=== PATIENT | male | born 1960 | race Caucasian/White ===

== ENCOUNTER 2019-02-09 12:57 | Emergency (ER) | payer BC, OTHER ==
[~2019-02-09] VITALS: Ht 72 cm; Wt 75.0 kg
[2019-02-09] MEDS ORDERED: LIDOCAINE UROJET 2% GEL 10 ML PKG TOP ONE (13:45)
[2019-02-09 14:36] LABS: BILIRUBIN,URINE NEGATIVE (NEGATIVE); CLARITY,URINE CLEAR; COLOR,URINE YELLOW; GLUCOSE, URINE (UA) NEGATIVE (NEGATIVE); KETONES,URINE NEGATIVE (NEGATIVE); LEUKOCYTE ESTERASE ,URINE 3+ (NEGATIVE); NITRITE,URINE POSITIVE (NEGATIVE); PH,URINE 7 (5-9); PROTEIN,URINE NEGATIVE (NEGATIVE); UROBILINOGEN,URINE NORMAL (NORMAL)
[2019-02-09 14:45] LABS: BACTERIA,URINE LARGE /HPF; WBC,URINE 50-100 /HPF
[2019-02-09] MEDS ORDERED: cefTRIAXone 1,000 MG/2.86 ml vial (IM ONLY) IM ONE (16:00)
[2019-02-09] MEDS ORDERED: LIDOCAINE 1% INJ 20 ML 20 ML VIAL INJ ONE (16:00)
[2019-02-09] MEDS ORDERED: PHEN-640 PO (16:04)
[2019-02-09] MEDS ORDERED: CIPR500T4 PO (16:04)
[2019-02-09] MEDS ORDERED: TAMS0.4C98 PO (16:04)
--- NOTE | 2019-02-09 16:05 | ED GU-Male ---
General Chief Complaint: Male Reproductive Stated Complaint: GROIN PAIN Nursing Triage Note: Pt amb to triage w/o difficulty with c/o groin pain. Reports discomfort began approx [id number] ago in his penis, and has gradually spread to his testicles and bilat lower abd. Pt described pain as sharp. Denies fever or chills. Source: patient Exam Limitations: no limitations History of Present Illness Date Seen by Provider: Feb 09, 2019 Time Seen by Provider: 13:35 Initial Comments This 4-year-old man presents to the emergency room with complaints of urinary hesitance, generalized discomfort in the pelvic region including the penis and scrotum, poor urine flow, and discomfort with attempts to urinate. This has been going on for about a month. He has not seen his doctor yet. He denies any known problems with his prostate. He denies any hematuria. He feels like he is retaining urine. He is afebrile. Dr. Maya on he is his primary care provi shabbir. He has a pending appointment with Dr. Jett. Allergies and Home Medications Allergies Coded Allergies: No Known Drug Allergies (Unverified , 02/09/19) Home Medications Ciprofloxacin HCl 500 Mg Tablet, 500 MG PO BID Prescribed by: KENNA HALL on 02/09/19 1604 Phenazopyridine HCl 200 Mg Tablet, 1 TAB PO TID PRN for PAIN-BREAKTHROUGH Prescribed by: KENNA HALL on 02/09/19 1604 Tamsulosin HCl 0.4 Mg Cap, 0.4 MG PO DAILY Prescribed by: KENNA HALL on 02/09/19 1604 Patient Home Medication List Home Medication List Reviewed: Yes Review of Systems Review of Systems Constitutional: no symptoms reported EENTM: no symptoms reported Respiratory: no symptoms reported Cardiovascular: no symptoms reported Gastrointestinal: no symptoms reported Genitourinary: see HPI Musculoskeletal: no symptoms reported Skin: no symptoms reported Psychiatric/Neurological: No Symptoms Reported Endocrine: No Symptoms Reported Hematologic/Lymphatic: No Symptoms Reported Past Xfrgdcu-Bfjswj-Wuoenx Hx Patient Social History Alcohol Use: Occasionally Uses Alcohol Beverage of Choice: Beer Recreational Drug Use: No Smoking Status: Current Everyday Smoker Type Used: Cigarettes Recent Foreign Travel: No Contact w/Someone Who Travel: No Recent Infectious Disease Expo: No Recent Hopitalizations: No Physical Abuse: No Sexual Abuse: No Mistreated: No Fear: No Immunizations Up To Date Tetanus Booster (TDap): Unknown Seasonal Allergies Seasonal Allergies: No Past Medical History Surgeries: Yes Abdominal (Hernia, colonoscopy), Appendectomy, Orthopedic Respiratory: No Cardiac: No Neurological: No Genitourinary: No Gastrointestinal: No Musculoskeletal: Yes Fractures Endocrine: No HEENT: No Cancer: No Psychosocial: No Integumentary: No Physical Exam Vital Signs Vital Signs - First Documented 02/09/19 13:12 Temp 37.3 Pulse 69 Resp 18 B/P (MAP) 202/113 (142) Pulse Ox 99 O2 Delivery Room Air Capillary Refill : Less Than 3 Seconds Height, Weight, BMI Height: '" Weight: lbs. oz. kg; 144.00 BMI Method: General Appearance: WD/WN, no apparent distress HEENT: PERRL/EOMI, normal ENT inspection Neck: normal inspection Cardiovascular: regular rate, rhythm, no edema, no murmur Respiratory: lungs clear, normal breath sounds, no respiratory distress, no accessory muscle use Gastrointestinal: normal bowel sounds, soft, distended (Fullness in the supr apubic region), tenderness (Suprapubic region) Male: normal genitalia, testicular tenderness (Minimal), other (Ring piercings of the posterior scrotum) Extremities: normal inspection, no pedal edema Neurologic/Psychiatric: sales operations associate II-XII nml as tested, no motor/sensory deficits, alert, normal mood/affect, oriented x 3 Skin: normal color, warm/dry Progress/Results/Core Measures Suspected Sepsis Recent Fever Within 48 Hours: No Infection Criteria Present: Suspected New Infection New/Unexplained Altered Menta: No Sepsis Screen: No Definite Risk SIRS Temperature: Pulse: 69 Respiratory Rate: 18 Blood Pressure 202 /113 Mean: 142 Results/Orders Lab Results Laboratory Tests Test 02/09/19 14:32 Range/Units Urine Color YELLOW Urine Clarity CLEAR Urine pH 7 5-9 Urine Specific [place] 1.005 L 1.016-1.022 Urine Protein NEGATIVE NEGATIVE Urine Glucose (UA) NEGATIVE NEGATIVE Urine Ketones NEGATIVE NEGATIVE Urine Nitrite POSITIVE H NEGATIVE Urine Bilirubin NEGATIVE NEGATIVE Urine Urobilinogen NORMAL NORMAL MG/DL Urine Leukocyte Esterase 3+ H NEGATIVE Urine RBC (Auto) NEGATIVE NEGATIVE Urine RBC NONE /HPF Urine WBC 50-100 H /HPF Urine Crystals NONE /LPF Urine Bacteria LARGE H /HPF Urine Casts NONE /LPF Urine Mucus NEGATIVE /LPF Urine Culture Indicated YES Micro Results Microbiology 02/09/19 Urine Culture - Preliminary, Resulted Klebsiella pneumoniae My Orders Orders - KENNA MIR MD Ua Culture If Indicated (02/09/19 13:32) Zaidi Cath (02/09/19 13:42) Lidocaine 2% (Urojet) (Xylocaine Urojet) (02/09/19 13:45) Urine Culture (02/09/19 14:32) Ceftriaxone For Im Use (Rocephin For Im (02/09/19 16:00) Lidocaine 1% Inj 20 Ml (Xylocaine 1% Inj (02/09/19 16:00) Medications Given in ED Vital Signs/I&O 02/09/19 02/09/19 13:12 16:09 Temp 37.3 37.3 Pulse 69 69 Resp 18 18 B/P (MAP) 202/113 (142) 163/90 (142) Pulse Ox 99 99 O2 Delivery Room Air Room Air Capillary Refill : Less Than 3 Seconds Blood Pressure Mean: 142 Progress Note : Progress Note Patient was able to void more than 200 mL. Zaidi catheter was placed and only 125 ML was drained. This was surprising given patient's assertion that he was retaining urine and the fullness palpated on exam. UA demonstrated significant infection. He was treated with a Rocephin injection and prescribed Cipro. Flomax was also prescribed and he was referred to follow-up with Dr. Jett. He already has an appointment scheduled. Departure Impression Primary Impression: Urinary tract infection Qualified Codes: N39.0 - Urinary tract infection, site not specified Additional Impression: Urinary retention Disposition: 01 HOME, SELF-CARE Condition: Improved Departure-Patient Inst. Decision time for Depature: 16:00 Referrals: MATEO JETT MD Patient Instructions: Urinary Retention, Urinary Tract Infections in Adults Add. Discharge Instructions: Start your prescriptions tonight. Drink plenty of clear liquids and try to empty her bladder frequently. Keep your appointment with Dr. Jett. Return to the ER if you have worsening symptoms such as worsening urinary retention or development of new symptoms such as fever. All discharge instructions reviewed with patient and/or family. Voiced understanding. Scripts Phenazopyridine HCl (Pyridium) 200 Mg Tablet 1 TAB PO TID PRN for PAIN-BREAKTHROUGH, #10 TAB Prov: BRUEGGEMANN,KENNA T MD 02/09/19 Ciprofloxacin HCl (Ciprofloxacin HCl) 500 Mg Tablet 500 MG PO BID, #14 TAB Prov: KENNA MIR MD 02/09/19 Tamsulosin HCl (Flomax) 0.4 Mg Cap 0.4 MG PO DAILY, #30 CAP Prov: KENNA MIR MD 02/09/19 Copy Copies To 1: MATEO JETT MD Copies To 2: PEE GIBBONS MD, JOSHUA T MD Feb 09, 2019 16:05
[2019-02-09 16:09] VITALS: BP 163/90
== END 2019-02-09 16:09 | disposition home or self-care (01) ==
LOC: ER 12:59
DX: N39.0 Urinary tract infection, site not specified (principal); F17.210 Nicotine dependence, cigarettes, uncomplicated; Z90.49 Acquired absence of other specified parts of digestive tract; Z98.890 Other specified postprocedural states
CPT/HCPCS: 51702; 81000; 87077; 87088; 87186; 96372

== ENCOUNTER 2019-06-13 10:54 | Observation (INO) | payer BC ==
[2019-06-13] VITALS (11 sets, daily range): BP systolic 133–181; BP diastolic 79–98
[~2019-06-13] VITALS: Ht 182.8 cm; Wt 75.9 kg
[~2019-06-13 10:54] MED LIST: CIPR500T4 PO; PHEN-640 PO; TMSL.4C PO
[2019-06-13] MEDS ORDERED: morphine INJ 10 MG/ML 1ML (SYR OR VIAL) IVP STA (11:15)
[2019-06-13] MEDS ORDERED: ASPIRIN 81 MG CHEW (CHILDREN'S ASA) PO ONE (11:15)
[2019-06-13 11:24] LABS: BASOPHILS # (AUTO) 0.1 10^3/uL (0.0-0.1); BASOPHILS % (AUTO) 1 % (0-10); EOSINOPHILS # (AUTO) 0.2 10^3/uL (0.0-0.3); EOSINOPHILS % (AUTO) 3 % (0-10); HEMATOCRIT 44 % (40-54); HEMOGLOBIN 15.2 G/DL (13.3-17.7); LYMPHOCYTES # (AUTO) 1.5 X 10^3 (1.0-4.0); LYMPHOCYTES % (AUTO) 19 % (12-44); MEAN CORPUSCULAR HEMOGLOBIN 33 PG (25-34); MEAN CORPUSCULAR HGB CONC 34 G/DL (32-36); MEAN CORPUSCULAR VOLUME 96 FL (80-99); MEAN PLATELET VOLUME 8.9 FL (7.4-10.4); MONOCYTES # (AUTO) 0.9 X 10^3 (0.0-1.0); MONOCYTES % (AUTO) 12 % (0-12); NEUTROPHILS # (AUTO) 5.2 X 10^3 (1.8-7.8); NEUTROPHILS % (AUTO) 65 % (42-75); PLATELET COUNT 324 10^3/uL (130-400); RED CELL DISTRIBUTION WIDTH 13.1 % (10.0-14.5)
--- NOTE | 2019-06-13 11:29 | ED Chest Pain ---
General Chief Complaint: Chest Pain Stated Complaint: HIGH BP History of Present Illness Date Seen by Provider: Jun 13, 2019 Time Seen by Provider: 11:08 Initial Comments The patient is a 58-year-old male with a history of hypertension started on low-dose amlodipine only last week, known peripheral vascular disease with 50% atherosclerotic plaquing of bilateral carotid arteries as of 2016 when MR angiography of head and neck was completed at [facility], history of extensive tobacco abuse (3 PPD x decades). He has no known history of coronary artery disease. He presents with concern for about 1 week of intermittent achy, throbbing, dull, poorly localizing substernal chest discomfort which has been intermittent and is nonexertional and nonpleuritic. Associated nausea which the patient states was worse this morning; he states he felt as though he would throw up but did not. Associated mild shortness of breath when the chest pain is more severe. Associated gradual onset generalized headache which he states is a feeling of "my head pounding as my heart beats." No associated fevers, vomiting, upper respiratory congestion/rhinorrhea, new productive cough, flank pain, back pain, abdominal pain. Patient states the last episode of the chest discomfort was early this morning after he got to work, at about 4 AM. He states he had to go home because the discomfort was too severe. He states chest discomfort has been a daily intermittent problem since last week. It sounds as though the patient recently returned to primary care with [facility]. Patient states labwork was completed by his [facility] physician Dr. Alvarado last week but he does not know any results yet. He is scheduled for an outpatient carotid Doppler ultrasound this week. Vital signs are appropriate here aside from mild hypertension and the patient is in no distress upon initial assessment in the emergency department. Allergies and Home Medications Allergies Coded Allergies: No Known Drug Allergies (Unverified , 02/09/19) Home Medications Amlodipine Besylate 5 Mg Tablet, 5 MG PO DAILY, (Reported) Patient Home Medication List Home Medication List Reviewed: Yes Review of Systems Review of Systems Constitutional: see HPI All Other Systems Reviewed Negative Unless Noted: Yes (Negative excepted noted.) Past Utvhnoo-Dfuzwj-Njppyt Hx Past Med/Social Hx: Reviewed Nursing Past Med/Soc Hx Patient Social History Alcohol Beverage of Choice: Beer Type Used: Cigarettes Recent Foreign Travel: No Recent Hopitalizations: No Immunizations Up To Date Tetanus Booster (TDap): Unknown Seasonal Allergies Seasonal Allergies: No Past Medical History Surgeries: Yes Abdominal, Appendectomy, Orthopedic Respiratory: No Cardiac: No Neurological: No Genitourinary: No Gastrointestinal: No Musculoskeletal: Yes Fractures Endocrine: No HEENT: No Cancer: No Psychosocial: No Integumentary: No Family Medical History Reviewed Nursing Family Hx Physical Exam Vital Signs Vital Signs - First Documented Capillary Refill : Height, Weight, BMI Height: '" Weight: lbs. oz. kg; 144.00 BMI Method: General Appearance: No Apparent Distress Other comments This is an older male appearing nontoxic and in no acute distress. Head is normocephalic and atraumatic. Neck is supple and nontender. Oropharynx is moist. Lungs are clear to auscultation at all stations. There is a normal S1 and S2 without rubs or gallops and capillary refill is appropriate, less than 2 seconds globally. Systolic ejection murmur; unclear chronicity. Abdomen is so ft, nontender and nondistended. Skin is warm and dry without cyanosis, clubbing or edema. Psychiatrically, the patient demonstrates appropriate mood and affect and is alert. Cranial nerves II through XII are intact and there are no lateralizing deficits noted. Speech is normal. Language is normal. Coordination is normal. There is no dysmetria with miagix-ts-lpqn or svxy-jz-jjrm lashonda aterally. Strength is 5 out of 5 in all joints of bilateral upper and lower extremities. Sensation is intact to light touch in bilateral upper and lower extremities. The patient ambulates with a narrow, steady gait in the emergency department and is alert and oriented 4. Progress/Results/Core Measures Results/Orders Lab Results Laboratory Tests Test 06/13/19 11:15 Range/Units White Blood Count 8.0 4.3-11.0 10^3/uL Red Blood Count 4.61 4.35-5.85 10^6/uL Hemoglobin 15.2 13.3-17.7 G/DL Hematocrit 44 40-54 % Mean Corpuscular Volume 96 80-99 FL Mean Corpuscular Hemoglobin 33 25-34 PG Mean Corpuscular Hemoglobin Concent 34 32-36 G/DL Red Cell Distribution Width 13.1 10.0-14.5 % Platelet Count 324 130-400 10^3/uL Mean Platelet Volume 8.9 7.4-10.4 FL Neutrophils (%) (Auto) 65 42-75 % Lymphocytes (%) (Auto) 19 12-44 % Monocytes (%) (Auto) 12 0-12 % Eosinophils (%) (Auto) 3 0-10 % Basophils (%) (Auto) 1 0-10 % Neutrophils # (Auto) 5.2 1.8-7.8 X 10^3 Lymphocytes # (Auto) 1.5 1.0-4.0 X 10^3 Monocytes # (Auto) 0.9 0.0-1.0 X 10^3 Eosinophils # (Auto) 0.2 0.0-0.3 10^3/uL Basophils # (Auto) 0.1 0.0-0.1 10^3/uL Prothrombin Time 12.3 12.2-14.7 SEC INR Comment 0.9 0.8-1.4 Activated Partial Thromboplast Time 27 24-35 SEC Sodium Level 133 L 135-145 MMOL/L Potassium Level 4.6 3.6-5.0 MMOL/L Chloride Level 96 L 98-107 MMOL/L Carbon Dioxide Level 23 21-32 MMOL/L Anion Gap 14 5-14 MMOL/L Blood Urea Nitrogen 5 L 7-18 MG/DL Creatinine 0.72 0.60-1.30 MG/DL Estimat Glomerular Filtration Rate > 60 BUN/Creatinine Ratio 7 Glucose Level 114 H 70-105 MG/DL Calcium Level 9.2 8.5-10.1 MG/DL Corrected Calcium 8.8 8.5-10.1 MG/DL Total Bilirubin 0.5 0.1-1.0 MG/DL Aspartate Amino Transf (AST/SGOT) 20 5-34 U/L Alanine Aminotransferase (ALT/SGPT) 15 0-55 U/L Alkaline Phosphatase 57 40-136 U/L Troponin I < 0.30 <0.30 NG/ML Pro-B-Type Natriuretic Peptide 143.3 H <75.0 PG/ML Total Protein 7.2 6.4-8.2 GM/DL Albumin 4.5 3.2-4.5 GM/DL My Orders Orders - ESMER PEDRO MD Cbc With Automated Diff (06/13/19 11:15) Comprehensive Metabolic Panel (06/13/19 11:15) Troponin I Fs (06/13/19 11:15) Ekg Tracing (06/13/19 11:15) Chest Pa/Lat (2 View) (06/13/19 11:15) Protime With Inr (06/13/19 11:15) Partial Thromboplastin Time (06/13/19 11:15) Probnp Fs (06/13/19 11:15) Aspirin Chewable Tablet (Baby Aspirin Ch (06/13/19 11:15) Ct Head Wo (06/13/19 11:15) Ed Iv/Invasive Line Start (06/13/19 11:15) Morphine Injection (Morphine Injection (06/13/19 11:15) Medications Given in ED Current Medications Medications Dose Ordered Sig/Bhumi Route Start Time Stop Time Status Last Admin Dose Admin Aspirin 324 mg ONCE ONCE PO 06/13/19 11:15 06/13/19 11:18 DC 06/13/19 11:22 162 MG Vital Signs/I&O 06/13/19 06/13/19 10:59 10:59 Temp 36.7 Pulse 55 Resp 18 B/P (MAP) 163/95 (117) Pulse Ox 100 O2 Delivery Room Air Room Air Progress Progress Note : Time: 11:32 Progress Note 58-year-old male with hypertension, long tobacco use history and known atherosclerotic peripheral vascular disease, and although no known history of coronary artery disease, high suspicion that it is present. He presents with one week of intermittent nonexertional, nonpleuritic chest discomfort with asso ciated nausea. Suspicion for unstable angina at a minimum. We will check labs and EKG and chest x-ray and head CT given recurrent headaches recently. We'll give an aspirin and a small dose of morphine for discomfort. The patient will minimally be an admission for observation on telemetry, ACS rule out and attention from cardiology for risk stratification purposes if workup here is reassuring. This is discussed with him and he understands and agrees. Update 1230: Workup unremarkable and reassuring. We'll proceed as per plan above with admission for ACS rule out, observation on telemetry and attention from cardiology at [facility]. Patient updated and understands and agrees in all questions are answered. Case is discussed with Dr. Freitas graciously accepts for observation admission. Comment Sinus rhythm, very frequent premature ventricular contractions, no acute ST elevation or depression, OR 189, QRS 90, QTC 480, EP interpretation. Diagnostic Imaging Diagonstic Imaging: Xray Comments Date of Exam:06/13/19 CHEST PA/LAT (2 VIEW) INDICATION: Chest pain. TIME OF EXAM: 11:10 a.m. COMPARISON: No prior studies are available for comparison. FINDINGS: The heart size is normal. Lungs are hyperinflated consistent with COPD. No infiltrates are detected. No effusion or pneumothorax is detected. IMPRESSION: COPD. No acute feature is detected. CT HEAD WO PROCEDURE: CT head without contrast. TECHNIQUE: Multiple contiguous axial images were obtained through the brain without the use of intravenous contrast. Auto Exposure Controls were utilized during the CT exam to meet ALARA standards for radiation dose reduction. INDICATION: Head, neck and chest pain. COMPARISON: No prior CT brain studies are available for comparison. FINDINGS: Ventricles and sulci are within normal limits. No sulcal effacement or midline shift is identified. No acute intra-axial or extra-axial hemorrhage is detected. Cisterns are patent. Visualized paranasal sinuses are clear. IMPRESSION: No acute intracranial process is detected. Departure Impression Primary Impression: Other chest pain Additional Impression: Headache Qualified Codes: G44.89 - Other headache syndrome Disposition: 09 ADMITTED INPATIENT Condition: Stable Departure-Patient Inst. Referrals: PEE ALVARADO MD (PCP/Family) Primary Care Physician ESMER PEDRO MD Jun 13, 2019 11:29
--- NOTE | 2019-06-13 11:45 | Diagnostic Imaging Report ---
INDICATION: Chest pain. TIME OF EXAM: 11:10 a.m. COMPARISON: No prior studies are available for comparison. FINDINGS: The heart size is normal. Lungs are hyperinflated consistent with COPD. No infiltrates are detected. No effusion or pneumothorax is detected. IMPRESSION: COPD. No acute feature is detected. Dictated by: Dictated on workstation # [id number]
--- NOTE | 2019-06-13 11:46 | Diagnostic Imaging Report ---
PROCEDURE: CT head without contrast. TECHNIQUE: Multiple contiguous axial images were obtained through the brain without the use of intravenous contrast. Auto Exposure Controls were utilized during the CT exam to meet ALARA standards for radiation dose reduction. INDICATION: Head, neck and chest pain. COMPARISON: No prior CT brain studies are available for comparison. FINDINGS: Ventricles and sulci are within normal limits. No sulcal effacement or midline shift is identified. No acute intra-axial or extra-axial hemorrhage is detected. Cisterns are patent. Visualized paranasal sinuses are clear. IMPRESSION: No acute intracranial process is detected. Dictated by: Dictated on workstation # [id number]
[2019-06-13] MEDS ORDERED: Chantix (11:47)
[2019-06-13] MEDS ORDERED: AMLO5TAB9 PO (11:47)
[2019-06-13 11:53] LABS: INR 0.9 (0.8-1.4); PROTHROMBIN TIME PATIENT 12.3 SEC (12.2-14.7)
[2019-06-13 11:58] LABS: BUN/CREATININE RATIO 7; CARBON DIOXIDE 23 MMOL/L (21-32); CHLORIDE 96 MMOL/L (98-107); CREATININE SERUM 0.72 MG/DL (0.60-1.30); GFR ESTIMATED > 60; POTASSIUM 4.6 MMOL/L (3.6-5.0); SODIUM 133 MMOL/L (135-145)
[2019-06-13 11:59] LABS: ALANINE AMINOTRANSFERASE 15 U/L (0-55); ALBUMIN 4.5 GM/DL (3.2-4.5); ALKALINE PHOSPHATASE 57 U/L (40-136); BILIRUBIN,TOTAL 0.5 MG/DL (0.1-1.0); CALCIUM 9.2 MG/DL (8.5-10.1); GLUCOSE 114 MG/DL (70-105); TOTAL PROTEIN 7.2 GM/DL (6.4-8.2)
--- NOTE | 2019-06-13 12:00 | NUR ---
Resting quietly in room on cart, pending results.
--- NOTE | 2019-06-13 12:20 | NUR ---
Pt reports a minimal amount of pain in chest less than "2"/10 but feels throbbing in neck and head region like feeling pulsing heart beats. The head/neck pain is "2"/10. Explained Dr assessing a couple patients and will come with all results and plans if he had not been in to talk to him lately. Dr had mentioned a need to admit for further cardiac evalution.
--- NOTE | 2019-06-13 13:24 | NUR ---
Call [facility] Dispatch for request for ambulance transfer.
--- NOTE | 2019-06-13 13:27 | NUR ---
EMS was paged out by dispatch as pending transfer, Triage yellow, ALS crew.
[2019-06-13] MEDS ORDERED: ANTACID SUSP 30 ML UDC (MYLANTA) PO PRN (13:30)
[2019-06-13] MEDS ORDERED: ACETAMINOPHEN 325 MG TABLET PO PRN (13:30)
[2019-06-13] MEDS ORDERED: HYDROmorphone 2 MG/ML VIAL (DILAUDID) IV PRN (13:30)
[2019-06-13] MEDS ORDERED: MELATONIN 3 MG TABLET PO PRN (13:30)
[2019-06-13] MEDS ORDERED: diphenhydrAMINE 50 MG/ML INJ (BENADRYL) IVP PRN (13:30)
[2019-06-13] MEDS ORDERED: morphine INJ 10 MG/ML 1ML (SYR OR VIAL) IV PRN (13:30)
[2019-06-13] MEDS ORDERED: BISACODYL 10 MG SUPP (DULCOLAX) PR PRN (13:30)
[2019-06-13] MEDS ORDERED: LACTULOSE SYRUP 10GM/15ML (ENULOSE) 30ML UDC PO PRN (13:30)
[2019-06-13] MEDS ORDERED: guaiFENesin/CODEINE (ROBITUSSIN AC) 10ML UDC PO PRN (13:30)
[2019-06-13] MEDS ORDERED: CALCIUM CARBONATE 500 MG (TUMS) TAB.CHEW PO PRN (13:30)
[2019-06-13] MEDS ORDERED: ALPRAZolam 0.25 MG (XANAX) TAB PO PRN (13:30)
[2019-06-13] MEDS ORDERED: ONDANSETRON 4 MG/2 ML (SDV) Z0FRAN IV PRN (13:30)
[2019-06-13] MEDS ORDERED: POLYETHYLENE GLYCOL 17 GM (MIRALAX) PACK PO PRN (13:30)
[2019-06-13] MEDS ORDERED: ONDANSETRON 4 MG (ZOFRAN) ORAL DISSOLVE TAB PO PRN (13:30)
[2019-06-13] MEDS ORDERED: MILK OF MAGNESIA 400 MG/5 ML 30 ML UDC PO PRN (13:30)
--- NOTE | 2019-06-13 13:45 | NUR ---
Prior page for transfer went out of [facility] to [facility] and pending return to [facility] to allow this transfer depart.
[2019-06-13] MEDS ORDERED: morphine INJ 4 MG/ML 1 ML (VIAL/SYRINGE) IV PRN (14:00)
--- NOTE | 2019-06-13 14:20 | NUR ---
EMS arriving for transfer, prior transfer crew is back in critical access hospital enabling this crew to leave critical access hospital. No change in condition. Sinus rhythm with numerous unifocal PVC's are noted throughout ER stay. Periods of bigeminy and couplets are seen.
--- NOTE | 2019-06-13 14:27 | NUR ---
Pt departing via [facility] at this time to transfer to [facility] Rm [id number]. Pt ambulated to bathroom prior to transport. Monitor continues to reveal Sinus Rhythm with many unifocal PVC's. See transfer and discharge summary.
[2019-06-13] MEDS ORDERED: ASPI-999 PO (15:07)
--- NOTE | 2019-06-13 15:12 | NUR ---
DIANNE MICHELLE admitted to room 414-1, with an admitting diagnosis of CHEST PAIN, on 06/13/19 from ED via [facility], accompanied by EMT FROM [facility]. DIANNE MICHELLE introduced to surroundings, call light, bed controls, phone, TV, temperature control, lights, meal times, smoking policy, visitor policy, side rail policy, bathrooms and showers. Patient Rights given to patient in the handbook. DIANNE MICHELLE verbalizes understanding that [facility] is not responsible for the loss or damage to any personal effects or valuables that are kept in the patients posession during their hospitalization. The following Patient Care Plans were discussed with the PATIENT: Discharge Planning, PAIN, ANXIETY AND KNOWLEDGE. DIANNE MICHELLE verbalizes understanding of Interdisciplinary Patient Education.
--- NOTE | 2019-06-13 15:30 | NUR ---
DR MIXON NOTIFIED OF CONSULT
[2019-06-13] MEDS ORDERED: MULT-1067 PO (15:39)
[2019-06-13] MEDS ORDERED: VARE1TAB22 PO (15:39)
--- NOTE | 2019-06-13 15:40 | NUR ---
SPOKE WITH THE PATIENT ABOUT HIS MEDICATIONS. HE LISTED THEM TO ME AND I COMPARED WITH THE EXT MED HX. HE TAKES 2 ASPIRIN 81MG CHEW TABS DAILY AND CENTRUM DAILY OTC. HE STATES HE HAD CHANTIX THEN STOPPED IT, HE HAS RECENTLY RESTARTED IT. HE HAS 1MG TABS AND IS TAKING ONE DAILY FOR A COUPLE WEEKS THEN WILL INCREASE TO BID. FOR NOW HE STATES JUST 1 DAILY.
--- NOTE | 2019-06-13 17:09 | Consultation-Cardiology ---
[facility] 06/13/19 1709: HPI-Cardiology Cardiology Consultation Date of Consultation 06/13/19 Date of Admission Time Seen by Provider: 16:22 HPI This is a 58 y/o male w/ hx of HTN (started on Amlodipine last week), COPD, GERD, TIA, PVCs, and Tobaccoism who was admitted to this hospital for chest pain from [facility] [place]. His Pre-BNP was elevated but Troponin was negative at the ER. He states he has been having this chest pain intermittently for the past 1 wk. He describes the pain as non-radiating, dull at the moment but does feel like "someone punched me in chest" at times that wake him up from sleep at night. He c/o associated Nausea, mild SOB, and lightheadedness but denies any syncope, claudication, productive cough, increased dyspnea on exertion, vomiting, neurologic sx, or edema. Also c/o tension CHRISTOPHER which has also been going on intermittently for the past few days. pt reports palpitations as well, though he notes he has had PVCs for years (Dx in 2012) Pt reports he has been told he has a "murmur" from childhood and during routine physical check ups but has never had any work up done regarding the etiology of the murmur. Back in 2017 pt had an episode of TIA with right facial and right extremity weakness. MRA of neck at that time showed patency of the extracranial carotid and basilar circulation with approximately 50% narrowing at the bilateral carotid bulbs. MRI of head was negative for any acute abnormalities. Pt was scheduled for a repeat Carotid U/S tomorrow. Reports having a normal stress test done at [facility] 5 years ago but no other cardiac work up since then. Pt has long hx of Tobacco use but does report he has decreased his use from 3 packs/day to 1pack/day. He has no known CAD. Home Medications & Allergies Allergies: Coded Allergies: No Known Drug Allergies (Unverified , 02/09/19) Home Medication List Reviewed: Yes CQV-Cznrrd-Htbtqo Hx Patient Social History Alcohol Use: Regular Use Recreational Drug Use: No Smoking Status: Current Everyday Smoker Type Used: Cigarettes 2nd Hand Smoke Exposure: Yes (Patient decreased 3 pk to 1 pk over last month) Recent Foreign Travel: No Recent Infectious Disease Expo: No Recent Hopitalizations: No Immunizations Up To Date Tetanus Booster (TDap): Unknown Date of Influenza Vaccine: Mar 01, 2019 Family Medical History Significant Family History: COPD Family History: Cataracts 19 MOTHER Gastroenteritis 19 MOTHER Glaucoma 19 MOTHER Hypercholesterolemia 19 FATHER Neoplasm 19 FATHER Parkinson's disease 19 FATHER Respiratory disorder 19 FATHER Review of Systems-General Review of Systems Constitutional: No dizziness, No fever, No weakness EENTM: No blurred vision, No double vision, No vision loss Respiratory: No cough, No dyspnea on exertion Cardiovascular: chest pain; No edema; palpitations; No syncope Gastrointestinal: No abdominal pain, No constipation; nausea; No vomiting Musculoskeletal: back pain (chronic); No muscle pain Psychiatric/Neurological: Headache; Denies Numbness, Denies Paresthesia, Denies Tingling All Other Systems Reviewed Negative Unless Noted: Yes (Negative excepted noted.) ECG Impression ECG Initial ECG Rhythm: Normal Sinus, PVC Physical Exam Physical Exam Vital Signs Vital Signs - First Documented Capillary Refill : Less Than 3 Seconds Height, Weight, BMI Height: '" Weight: lbs. oz. kg; 23.00 BMI Method: General Appearance: No Apparent Distress, WD/WN HEENT: PERRL/EOMI, TMs Normal Neck: Full Range of Motion, Normal Inspection; No JVD Respiratory: Chest Non Tender, No Accessory Muscle Use, No Respiratory Distress, Crackles (mild bibasilar ) Cardiovascular: No Edema, No Gallop, No JVD, Normal Peripheral Pulses, Systolic Murmur, Other (irregular rhythm, normal rate) Gastrointestinal: Normal Bowel Sounds, No Organomegaly, No Pulsatile Mass, Non Tender, Soft Back: Normal Inspection, No CVA Tenderness, No Vertebral Tenderness Extremity: Normal Capillary Refill, Normal Inspection, Normal Range of Motion, Non Tender, No Calf Tenderness, No Pedal Edema Neurologic/Psychiatric: Alert, Oriented x3, Normal Mood/Affect, assistant professor of mathematics II-XII Norm as Tested Skin: Normal Color, Warm/Dry Lymphatic: No Adenopathy A/P-Cardiology Assessment/Plan Chest pain w/ elevated pre-BNP -Troponin was negative at the ED, to Trend Q6hr x3 -elevated pre BNP and Systolic murmur at left sternal border, May need echo cardiogram to evaluate cause -Last stress 5 years ago, which according to pt was normal. No record [facility] -Started on Lovenox injection Hypertension -Continue home med -Will monitor Hx of TIA -Last Carotid MRA on 04/2017 showed patency of the extracranial carotid and basilar circulation with approximately 50% narrowing at the bilateral carotid bulbs. MRI of head was negative for any acute abnormalities -was scheduled for Carotid U/S tomorrow, May need to be done here at via [facility]. COPD Tobaccoism Clinical Quality Measures AMI/AHF: ASA po Prior to arrival: No DVT/VTE Risk/Contraindication: Risk Factor Score Per Nursin RFS Level Per Nursing on Admit: 4+=Very High MILDRED MIXON MD 06/13/19 1736: HPI-Cardiology Cardiology Consultation Time Seen by Provider: 17:31 Home Medications & Allergies Allergies: Coded Allergies: No Known Drug Allergies (Unverified , 02/09/19) Home Medication List Reviewed: Yes ODL-Rcrllr-Ojmwoz Hx Patient Social History Marital Status: Employed/Student: employed Past Medical History Discussed below Family Medical History Family History: Cataracts 19 MOTHER Gastroenteritis 19 MOTHER Glaucoma 19 MOTHER Hypercholesterolemia 19 FATHER Neoplasm 19 FATHER Parkinson's disease 19 FATHER Respiratory disorder 19 FATHER Review of Systems-General Review of Systems Constitutional: chills Respiratory: dyspnea on exertion Cardiovascular: chest pain Musculoskeletal: back pain (chronic) Reviewed Test Results Reviewed Test Results Lab Laboratory Tests Test 06/13/19 11:15 06/13/19 16:25 Range/Units White Blood Count 8.0 4.3-11.0 10^3/uL Red Blood Count 4.61 4.35-5.85 10^6/uL Hemoglobin 15.2 13.3-17.7 G/DL Hematocrit 44 40-54 % Mean Corpuscular Volume 96 80-99 FL Mean Corpuscular Hemoglobin 33 25-34 PG Mean Corpuscular Hemoglobin Concent 34 32-36 G/DL Red Cell Distribution Width 13.1 10.0-14.5 % Platelet Count 324 130-400 10^3/uL Mean Platelet Volume 8.9 7.4-10.4 FL Neutrophils (%) (Auto) 65 42-75 % Lymphocytes (%) (Auto) 19 12-44 % Monocytes (%) (Auto) 12 0-12 % Eosinophils (%) (Auto) 3 0-10 % Basophils (%) (Auto) 1 0-10 % Neutrophils # (Auto) 5.2 1.8-7.8 X 10^3 Lymphocytes # (Auto) 1.5 1.0-4.0 X 10^3 Monocytes # (Auto) 0.9 0.0-1.0 X 10^3 Eosinophils # (Auto) 0.2 0.0-0.3 10^3/uL Basophils # (Auto) 0.1 0.0-0.1 10^3/uL Prothrombin Time 12.3 12.2-14.7 SEC INR Comment 0.9 0.8-1.4 Activated Partial Thromboplast Time 27 24-35 SEC Sodium Level 133 L 135-145 MMOL/L Potassium Level 4.6 3.6-5.0 MMOL/L Chloride Level 96 L 98-107 MMOL/L Carbon Dioxide Level 23 21-32 MMOL/L Anion Gap 14 5-14 MMOL/L Blood Urea Nitrogen 5 L 7-18 MG/DL Creatinine 0.72 0.60-1.30 MG/DL Estimat Glomerular Filtration Rate > 60 BUN/Creatinine Ratio 7 Glucose Level 114 H 70-105 MG/DL Calcium Level 9.2 8.5-10.1 MG/DL Corrected Calcium 8.8 8.5-10.1 MG/DL Total Bilirubin 0.5 0.1-1.0 MG/DL Aspartate Amino Transf (AST/SGOT) 20 5-34 U/L Alanine Aminotransferase (ALT/SGPT) 15 0-55 U/L Alkaline Phosphatase 57 40-136 U/L Troponin I < 0.30 < 0.028 <0.028 NG/ML Pro-B-Type Natriuretic Peptide 143.3 H <75.0 PG/ML Total Protein 7.2 6.4-8.2 GM/DL Albumin 4.5 3.2-4.5 GM/DL Physical Exam Physical Exam General Appearance: No Apparent Distress, WD/WN Eyes: Bilateral Eye Normal Inspection, Bilateral Eye PERRL, Bilateral Eye EOMI HEENT: PERRL/EOMI, TMs Normal, Normal ENT Inspection, Pharynx Normal, Moist Mucous Membranes Neck: Full Range of Motion, Normal Inspection, Non Tender, Supple, Carotid Bruit Respiratory: Chest Non Tender, Normal Breath Sounds, No Accessory Muscle Use, No Respiratory Distress Cardiovascular: No Edema, No Gallop, No JVD, Normal Peripheral Pulses, Systolic Murmur, Other (irregular rhythm, normal rate) Gastrointestinal: Normal Bowel Sounds, No Organomegaly, No Pulsatile Mass, Non Tender, Soft Back: Normal Inspection, No CVA Tenderness, No Vertebral Tenderness Extremity: Normal Capillary Refill, Normal Inspection, Normal Range of Motion, Non Tender, No Calf Tenderness, No Pedal Edema Neurologic/Psychiatric: Alert, Oriented x3, No Motor/Sensory Deficits, Normal Mood/Affect Skin: Normal Color, Warm/Dry Lymphatic: No Adenopathy A/P-Cardiology Admission Diagnosis Chest pain PVCs Hypertension Headache Assessment/Plan Verification and Attestation of Medical Student E/M Service A medical student performed and documented this service in my presence. I reviewed and verified all information documented by the medical student and made modifications to such information, when appropriate. I personally performed the physical exam and medical decision making. Patient was seen and evaluated, currently not having chest pain, reporting episode of back pain and chest pain and pounding in his head, having frequent PVCs. Has been noticing irregular heartbeat for the past 6 months. EKG did not show any acute abnormality, Cardec enzymes are negative Lungs were clear to auscultation, heart is irregular with systolic murmur I will continue monitoring his cardiac enzymes and EKG, planning for stress test in the morning, evaluate 2-D echo Start low-dose beta blockers. Mildred Mixon, Jun 13, 2019,17:33 Supervisory-Addendum Brief Verification & Attestation Participated in pt care: history, MDM, physical Personally performed: exam, history, MDM, supervision of care Care discussed with: Medical Student Procedures: n/a Results interpretation: Verified all documentation Verification and Attestation of Medical Student E/M Service A medical student performed and documented this service in my presence. I reviewed and verified all information documented by the medical student and made modifications to such information, when appropriate. I personally performed the physical exam and medical decision making. Mildred Mixon, Jun 13, 2019,17:35 [facility] Jun 13, 2019 17:09 MILDRED MIXON MD Jun 13, 2019 17:36
--- NOTE | 2019-06-13 18:00 | NUR ---
SALES COMMISSIONS ANALYST NOTIFIED OF NUCLEAR STRESS TEST AND ECHO IN AM
[2019-06-13] MEDS: ENOXAPARIN 40 MG/0.4 ML (LOVENOX) SYR SC SCH (18:17)
--- NOTE | 2019-06-13 22:00 | History & Physical-Hospitalist ---
History of Present Illness HPI/Chief Complaint CC: Chest pain HPI: This is a 58yoWM clinic patient of Dr Alvarado who has a recent hx of HTN just started on treatment who continues to smoke but Chantix has helped him decrease from 3 ppd to 1 ppd who presents to the ER with vague chest pain in need of risk stratification. Currently he has no chest pain. Source: patient Exam Limitations: no limitations Date Seen 06/13/19 Time Seen by a Provider: 18:30 Attending Physician Jeannette Freitas Pankaj K MD Referring Physician Date of Admission Jun 13, 2019 at 13:15 Home Medications & Allergies Home Medications Reviewed patient Home Medication Reconciliation performed by pharmacy medication reconciliations library cataloging technician and/or nursing. Patients Allergies have been reviewed. Allergies Allergies Coded Allergies No Known Drug Allergies (Unverified02/09/19) Past Zvluwxn-Ddvpfy-Uiisiq Hx Past Med/Social Hx: Reviewed Nursing Past Med/Soc Hx, Reviewed and Corrections made Patient Social History Marrital Status: Employed/Student: employed Alcohol Use: Regular Use Number of Drinks Today: AA Alcohol Beverage of Choice: Beer Recreational Drug Use: No Smoking Status: Current Everyday Smoker Type Used: Cigarettes 2nd Hand Smoke Exposure: Yes (Patient decreased 3 pk to 1 pk over last month) Recent Foreign Travel: No Contact w/other who traveled: No Recent Hopitalizations: No Recent Infectious Disease Expo: No Immunizations Up To Date Tetanus Booster (TDap): Unknown Date of Influenza Vaccine: Mar 01, 2019 Seasonal Allergies Seasonal Allergies: No Past Medical History Surgeries: Abdominal, Appendectomy, Orthopedic Currently Using CPAP: No Currently Using BIPAP: No Cardiac: Heart Murmur, Hypertension Sexually Transmitted Disease: No HIV/AIDS: No Musculoskeletal: Fractures History of Blood Disorders: No Family History Reviewed Nursing Family Hx Cataracts 19 MOTHER Gastroenteritis 19 MOTHER Glaucoma 19 MOTHER Hypercholesterolemia 19 FATHER Neoplasm 19 FATHER Parkinson's disease 19 FATHER Respiratory disorder 19 FATHER COPD Review of Systems Constitutional: see HPI Cardiovascular: chest pain Physical Exam Physical Exam Vital Signs Vital Signs - First Documented Capillary Refill : Less Than 3 Seconds Height, Weight, BMI Height: '" Weight: lbs. oz. kg; 22.71 BMI Method: General Appearance: No Apparent Distress Eyes: Right Eye Normal Inspection, Right Eye PERRL HEENT: PERRL/EOMI, Normal ENT Inspection, Pharynx Normal, Moist Mucous Membranes Neck: Full Range of Motion, Normal Inspection, Non Tender Respiratory: Chest Non Tender, Lungs Clear, Normal Breath Sounds, No Accessory Muscle Use, No Respiratory Distress Cardiovascular: Regular Rate, Rhythm, No Edema, No Gallop, No JVD, Normal P eripheral Pulses, Systolic Murmur Gastrointestinal: Normal Bowel Sounds, No Organomegaly, No Pulsatile Mass, Non Tender, Soft Back: Normal Inspection, No CVA Tenderness, No Vertebral Tenderness Extremity: Normal Capillary Refill, Normal Inspection, Normal Range of Motion, Non Tender, No Calf Tenderness, No Pedal Edema Neurologic/Psychiatric: Alert, Oriented x3, No Motor/Sensory Deficits, Normal Mood/Affect Skin: Normal Color, Warm/Dry Lymphatic: No Adenopathy Results Results/Procedures Labs Laboratory Tests 06/13/19 11:15 Patient resulted labs reviewed. Assessment/Plan Admission Diagnosis Assessment: Chest pain Smoker heavy HTN Plan: Monitor closely Lipid panel Smoking cessation Cardiology appreciated Admission Status: Observation Diagnosis/Problems Diagnosis/Problems (1) Other chest pain Status: Acute (2) Smoker (3) Hypertension Clinical Quality Measures AMI/AHF: ASA po Prior to arrival: No DVT/VTE Risk/Contraindication: Risk Factor Score Per Nursin RFS Level Per Nursing on Admit: 4+=Very High JEANNETTE FREITAS DO Jun 13, 2019 22:00
[2019-06-13] MEDS: DOCUSATE SODIUM 100 MG (COLACE) CAP PO SCH (22:41)
[2019-06-13] MEDS: SENNOSIDES 8.6 MG (SENOKOT) TAB PO SCH (22:41)
[2019-06-14] VITALS (7 sets, daily range): BP systolic 122–155; BP diastolic 64–97
[2019-06-14 05:06] LABS: BASOPHILS # (AUTO) 0.1 10^3/uL (0.0-0.1); BASOPHILS % (AUTO) 2 % (0-10); EOSINOPHILS # (AUTO) 0.6 10^3/uL (0.0-0.3); EOSINOPHILS % (AUTO) 9 % (0-10); HEMATOCRIT 44 % (40-54); HEMOGLOBIN 14.7 G/DL (13.3-17.7); LYMPHOCYTES # (AUTO) 1.7 X 10^3 (1.0-4.0); LYMPHOCYTES % (AUTO) 26 % (12-44); MEAN CORPUSCULAR HEMOGLOBIN 32 PG (25-34); MEAN CORPUSCULAR HGB CONC 33 G/DL (32-36); MEAN CORPUSCULAR VOLUME 97 FL (80-99); MEAN PLATELET VOLUME 9.4 FL (7.4-10.4); MONOCYTES # (AUTO) 0.8 X 10^3 (0.0-1.0); MONOCYTES % (AUTO) 12 % (0-12); NEUTROPHILS # (AUTO) 3.3 X 10^3 (1.8-7.8); NEUTROPHILS % (AUTO) 51 % (42-75); PLATELET COUNT 293 10^3/uL (130-400); RED CELL DISTRIBUTION WIDTH 13.9 % (10.0-14.5); WHITE BLOOD COUNT 6.4 10^3/uL (4.3-11.0)
[2019-06-14 05:29] LABS: ALANINE AMINOTRANSFERASE 21 U/L (0-55); ALBUMIN 4.1 GM/DL (3.2-4.5); ALKALINE PHOSPHATASE 47 U/L (40-136); BILIRUBIN,TOTAL 0.6 MG/DL (0.1-1.0); BUN/CREATININE RATIO 9; CALCIUM 9.3 MG/DL (8.5-10.1); CARBON DIOXIDE 22 MMOL/L (21-32); CHLORIDE 104 MMOL/L (98-107); CHOLESTEROL 177 MG/DL (< 200); CREATININE SERUM 0.82 MG/DL (0.60-1.30); GFR ESTIMATED > 60; GLUCOSE 93 MG/DL (70-105); HDL CHOLESTEROL 79 MG/DL (40-60); POTASSIUM 4.6 MMOL/L (3.6-5.0); SODIUM 137 MMOL/L (135-145); TOTAL PROTEIN 6.6 GM/DL (6.4-8.2); TRIGLYCERIDES 95 MG/DL (<150); VLDL CHOLESTEROL 19 MG/DL (5-40)
[2019-06-14] MEDS: MULTIVIT W/MINERALS TAB (THERAGRAN M) PO SCH (06:32)
[2019-06-14] MEDS ORDERED: CATHETER FLUSH 10 ML SYR IV PRN (07:15)
--- NOTE | 2019-06-14 07:25 | NUR ---
PT TAKEN OFF FLOOR VIA WHEELCHAIR FOR STRESS TEST.
[2019-06-14] MEDS ORDERED: amLODIPine 5 MG (NORVASC) TAB PO SCH (09:00)
[2019-06-14] MEDS: DOCUSATE SODIUM 100 MG (COLACE) CAP PO SCH ×2 (09:00→21:00)
[2019-06-14] MEDS ORDERED: MULTIVITAMIN PO SCH (09:00)
[2019-06-14] MEDS: SENNOSIDES 8.6 MG (SENOKOT) TAB PO SCH ×2 (09:00→21:00)
[2019-06-14] MEDS ORDERED: FOLIC ACID T PO SCH (09:00)
[2019-06-14] MEDS ORDERED: ASPIRIN 81 MG CHEW (CHILDREN'S ASA) PO SCH (09:00)
[2019-06-14] MEDS ORDERED: IRON PO SCH (09:00)
[2019-06-14] MEDS ORDERED: [UNRECOGNIZED DRUG - OTHER] PO SCH (09:00)
[2019-06-14] MEDS ORDERED: NON-FORMULARY MEDICATION 1 EA EA (Varenicline Tartrate (Chantix) 1 MG) PO SCH (09:00)
--- NOTE | 2019-06-14 09:00 | Cardiology Progress Note ---
Subjective Date Seen by Provider: Jun 14, 2019 Time Seen by Provider: 08:54 Subjective/Events-last exam pt sitting in bed. still c/o dull substernal "ache" with palpitations. had his stress test and echo this AM. denies any SOB, cough, dizziness, CHRISTOPHER, or any other Sx at this time. Review of Systems General: No Chills, No Fatigue HEENT: No Head Aches, No Visual Changes Pulmonary: No Dyspnea, No Cough, No Pleuritic Chest Pain Cardiovascular: Chest Pain, Palpitations Gastrointestinal: No: Nausea, Vomiting Genitourinary: No Dysuria, No Incontinence Neurological: No: Weakness, Numbness Objective-Cardiology Exam Last Set of Vital Signs Vital Signs 06/14/19 06/14/19 03:50 08:14 Temp 36.6 Pulse 97 Resp 18 B/P (MAP) 139/97 (111) Pulse Ox 99 O2 Delivery Room Air Capillary Refill : Less Than 3 Seconds I&O Intake and Output 06/14/19 00:00 Intake Total 1280 ml Balance 1280 ml Intake Oral 1280 ml # Voids 2 Daily Weight Change No No General: Alert, Oriented X3, Cooperative HEENT: Atraumatic, PERRLA Neck: Supple, No JVD, No Thyromegaly Lungs: Clear to Auscultation, Normal Air Movement Heart: Normal S1, Normal S2, Other (systolic murmur over left sternal border, irregular rate) Abdomen: Normal Bowel Sounds, Soft, No Tenderness, No Hepatosplenomegaly, No Masses Extremities: No Clubbing, No Cyanosis Skin: No Rashes, No Breakdown Neuro: Normal Speech, Cranial Nerves 3-12 NL Psych/Mental Status: Mental Status NL, Mood NL Results Lab Laboratory Tests 06/14/19 04:01 A/P-Cardiology Admission Diagnosis Chest pain PVCs Hypertension Headache Assessment/Plan Chest pain w/ elevated pre-BNP -currently not having chest pain, -Troponin was negative at the ED, to Trend Q6hr x3 -elevated pre BNP and Systolic murmur at left sternal border, -Last stress 5 years ago, which according to pt was normal. No record have been sent from [facility] -Has having frequent PVCs, first noted in 2012 -stress test and 2-D echo was done this AM, awaiting results. -Started on Lovenox injection Hypertension -Started on low-dose Beta-reynold yesterday -Well controlled -Will monitor Hx of TIA -Last Carotid MRA on 04/2017 showed patency of the extracranial carotid and basilar circulation with approximately 50% narrowing at the bilateral carotid bulbs. MRI of head was negative for any acute abnormalities -was scheduled for Carotid U/S tomorrow, May need to be done here at [facility]. COPD Tobaccoism -Has cut down from 3ppd to 1ppd Verification and Attestation of Medical Student E/M Service A medical student performed and documented this service in my presence. I reviewed and verified all information documented by the medical student and made modifications to such information, when appropriate. I personally performed the physical exam and medical decision making. Chest pain, nonspecific etiology, abnormal stress test with mild ischemia involving the apex, frequent PVCs, started on low-dose beta blockers. Planning to proceed with cardiac catheterization Hypertension, monitor blood pressure on beta blockers Tobaccoism, educated on smoking cessation Daron Menchaca, Jun 14, 2019,12:51 Clinical Quality Measures AMI/AHF: ASA po Prior to arrival: No DVT/VTE Risk/Contraindication: Risk Factor Score Per Nursin RFS Level Per Nursing on Admit: 4+=Very High Supervisory-Addendum Brief Verification & Attestation Participated in pt care: history, MDM, physical Personally performed: exam, history, MDM, supervision of care Care discussed with: Medical Student Procedures: n/a Results interpretation: Verified all documentation Verification and Attestation of Medical Student E/M Service A medical student performed and documented this service in my presence. I reviewed and verified all information documented by the medical student and made modifications to such information, when appropriate. I personally performed the physical exam and medical decision making. Daron Menchaca, Jun 14, 2019,12:51 [facility] Jun 14, 2019 09:00 DARON MENCHACA MD Jun 14, 2019 12:51
--- NOTE | 2019-06-14 10:06 | NUR ---
PT NO LONGER NPO PER DR MIXON ORDERS. ORDER PLACED IN EMR AND PT NOTIFIED.
--- NOTE | 2019-06-14 10:23 | Progress Note - Hospitalist ---
Subjective HPI/CC On Admission Date Seen by Provider: Jun 14, 2019 Time Seen by Provider: 09:30 CC: Chest pain HPI: This is a 58yoWM clinic patient of Dr Alvarado who has a recent hx of HTN just started on treatment who continues to smoke but Chantix has helped him decrease from 3 ppd to 1 ppd who presents to the ER with vague chest pain in need of risk stratification. Currently he has no chest pain. Subjective/Events-last exam Pt doing pretty well Stress test pending but completed BP well controlled Smoking cessation counseled Dr Menchaca updated me on the fact that the EST was positive for reversible ischemia so cath will be needed Review of Systems Cardiovascular: Chest Pain Objective Exam Vital Signs Vital Signs Date Time Temp Pulse Resp B/P (MAP) Pulse Ox O2 Delivery O2 Flow Rate FiO2 06/14/19 19:00 80 06/14/19 16:00 37.0 18 124/71 (88) 97 Room Air Capillary Refill : Less Than 3 Seconds General Appearance: No Apparent Distress, WD/WN Respiratory: Chest Non Tender, Lungs Clear, Normal Breath Sounds, No Accessory Muscle Use, No Respiratory Distress Cardiovascular: Regular Rate, Rhythm, No Edema, No Gallop, No JVD, No Murmur, Normal Peripheral Pulses Neurologic/Psychiatric: Alert, Oriented x3, No Motor/Sensory Deficits, Normal Mood/Affect Results/Procedures Lab Laboratory Tests 06/14/19 04:01 Patient resulted labs reviewed. Assessment/Plan Assessment and Plan Assess & Plan/Chief Complaint Assessment: Chest pain Smoker heavy PVD Abnl EST cath scheduled Plan: Cath tomorrow Diagnosis/Problems Diagnosis/Problems (1) Other chest pain Status: Acute (2) Smoker (3) Hypertension Clinical Quality Measures AMI/AHF: ASA po Prior to arrival: No DVT/VTE Risk/Contraindication: Risk Factor Score Per Nursin RFS Level Per Nursing on Admit: 4+=Very High DIONNE MARCH DO Jun 14, 2019 10:23
[2019-06-14] MEDS: ENOXAPARIN 40 MG/0.4 ML (LOVENOX) SYR SC SCH (14:13)
[2019-06-15] VITALS (11 sets, daily range): BP systolic 113–141; BP diastolic 69–97
[2019-06-15 06:14] LABS: BASOPHILS # (AUTO) 0.1 10^3/uL (0.0-0.1); BASOPHILS % (AUTO) 2 % (0-10); EOSINOPHILS # (AUTO) 0.5 10^3/uL (0.0-0.3); EOSINOPHILS % (AUTO) 8 % (0-10); HEMATOCRIT 45 % (40-54); LYMPHOCYTES # (AUTO) 1.6 X 10^3 (1.0-4.0); LYMPHOCYTES % (AUTO) 26 % (12-44); MEAN CORPUSCULAR HEMOGLOBIN 33 PG (25-34); MEAN CORPUSCULAR HGB CONC 33 G/DL (32-36); MEAN CORPUSCULAR VOLUME 97 FL (80-99); MEAN PLATELET VOLUME 9.5 FL (7.4-10.4); MONOCYTES # (AUTO) 0.7 X 10^3 (0.0-1.0); MONOCYTES % (AUTO) 12 % (0-12); NEUTROPHILS # (AUTO) 3.1 X 10^3 (1.8-7.8); NEUTROPHILS % (AUTO) 52 % (42-75); PLATELET COUNT 273 10^3/uL (130-400); RED CELL DISTRIBUTION WIDTH 13.6 % (10.0-14.5)
[2019-06-15 06:37] LABS: ALANINE AMINOTRANSFERASE 20 U/L (0-55); ALKALINE PHOSPHATASE 54 U/L (40-136); BILIRUBIN,TOTAL 0.5 MG/DL (0.1-1.0); BUN/CREATININE RATIO 8; CALCIUM 9.4 MG/DL (8.5-10.1); CARBON DIOXIDE 25 MMOL/L (21-32); CHLORIDE 105 MMOL/L (98-107); CREATININE SERUM 0.97 MG/DL (0.60-1.30); GFR ESTIMATED > 60; GLUCOSE 90 MG/DL (70-105); POTASSIUM 4.6 MMOL/L (3.6-5.0); SODIUM 139 MMOL/L (135-145); TOTAL PROTEIN 6.6 GM/DL (6.4-8.2)
[2019-06-15] MEDS ORDERED: NS IV 1000 ML 2,000 ML ONE (06:50)
[2019-06-15] MEDS ORDERED: LIDOCAINE 1% INJ 20 ML 20 ML VIAL ONE (06:50)
[2019-06-15] MEDS ORDERED: HEParin 1000 UNIT/ML (10ML VIAL) FOR BOLUS ONE (06:50)
[2019-06-15] MEDS: MULTIVIT W/MINERALS TAB (THERAGRAN M) PO SCH (07:00)
--- NOTE | 2019-06-15 08:11 | Cardiology Progress Note ---
Subjective Date Seen by Provider: Jun 15, 2019 Time Seen by Provider: 08:04 Subjective/Events-last exam Pt sitting up in bed. Relaxed. has been NPO since midnight last night. Denies any chest pain at this time. has slow pulse and does not feel palpitations as much as he has been feeling in the past few days. No complaints at this time. Review of Systems General: No Chills, No Fatigue HEENT: No Head Aches, No Visual Changes Pulmonary: No Dyspnea, No Cough Cardiovascular: Palpitations; No: Chest Pain Gastrointestinal: No: Nausea, Vomiting Neurological: No: Weakness, Numbness Objective-Cardiology Exam Last Set of Vital Signs Vital Signs 06/15/19 06/15/19 07:39 08:45 Temp 36.5 Pulse 58 Resp 18 B/P (MAP) 127/76 (93) Pulse Ox 98 O2 Delivery Room Air Capillary Refill : Less Than 3 Seconds I&O Intake and Output 06/15/19 00:00 Intake Total 3180 ml Output Total 3300 ml Balance -120 ml Intake Oral 3180 ml Output Urine Total 3300 ml # Voids 3 # Bowel Movements 2 General: Alert, Oriented X3, Cooperative HEENT: Atraumatic, PERRLA Neck: Supple, No JVD, No Thyromegaly Lungs: Clear to Auscultation, Normal Air Movement Heart: Normal S1, Normal S2, Other (systolic murmur over left sternal border, irregular rate) Abdomen: Normal Bowel Sounds, Soft, No Tenderness, No Hepatosplenomegaly, No Masses Extremities: No Clubbing, No Cyanosis Skin: No Rashes, No Breakdown Neuro: Normal Speech, Cranial Nerves 3-12 NL Psych/Mental Status: Mental Status NL, Mood NL Results Lab Laboratory Tests 06/15/19 05:30 06/15/19 05:35 A/P-Cardiology Admission Diagnosis Chest pain PVCs Hypertension Headache Assessment/Plan Chest pain w/ elevated pre-BNP -currently not having chest pain, pt had an abnormal stress test () with mild ischemia involving the apex; Echo report on : normal LV wall thickness and size, no regional wall motion abnormalities. Grade 1 diastolic dysfunction. EF ~50-55%; Estimated Pulmonary A. Pressure of 35 mm Hg; Will proceed with cardiac catheterization today, - Systolic murmur at left sternal border, -Has frequent PVCs, first noted in 2012 -Planning for heart cath today Hypertension -Started on 5mg Amlodipine -Well controlled, low pulse rate -Will monitor Hx of TIA -Last Carotid MRA on 04/2017 showed patency of the extracranial carotid and basilar circulation with approximately 50% narrowing at the bilateral carotid bulbs. MRI of head was negative for any acute abnormalities -was scheduled for Carotid U/S tomorrow, May need to be done here at via [facility]. COPD Tobaccoism -Has cut down from 3ppd to 1ppd Clinical Quality Measures AMI/AHF: ASA po Prior to arrival: No DVT/VTE Risk/Contraindication: Risk Factor Score Per Nursin RFS Level Per Nursing on Admit: 4+=Very High Supervisory-Addendum Brief Verification & Attestation Participated in pt care: history, MDM, physical Personally performed: exam, history, MDM, supervision of care Care discussed with: Medical Student Procedures: n/a Results interpretation: Verified all documentation Verification and Attestation of Medical Student E/M Service A medical student performed and documented this service in my presence. I reviewed and verified all information documented by the medical student and made modifications to such information, when appropriate. I personally performed the physical exam and medical decision making. Patient was seen and evaluated, still having occasional palpitation, fairly anxious Lungs were clear, heart is regular, frequent PVCs Had abnormal stress test with apical ischemia, planning for cardiac catheter today Started on beta blockers Mildred Menchaca, Jun 15, 2019,10:46 [facility] Jun 15, 2019 08:11 MILDRED MENCHACA MD Jun 15, 2019 10:46
[2019-06-15] MEDS ORDERED: MIDAZOLAM 5 MG/5 ML (VERSED) VIAL ONE (10:22)
[2019-06-15] MEDS ORDERED: fentaNYL INJECTION 100 MCG/2 ML AMP ONE (10:22)
--- NOTE | 2019-06-15 10:30 | NUR ---
PT TAKEN OFF FLOOR FOR HEART CATH PROCEDURE VIA BED.
[2019-06-15] MEDS ORDERED: NS IV 1000 ML 1,000 ML ONE (10:48)
--- NOTE | 2019-06-15 10:49 | Cardiac Procedure Note-CS/ASA ---
Pre-Procedure Note Pre-Op Procedure Note H&P Reviewed The H&P was reviewed, patient examined and no changes noted. Date H&P Reviewed: Jun 15, 2019 Time H&P Reviewed: 10:49 Conscious Sedation Pre-Proced Time 10:49 ASA Score 3 For ASA 3 and 4: Consider anesthesia and medical clearance. Also, for patients with a history of failed moderate sedation consider anesthesia. Airway Lungs Heart ASA score ASA 1: a normal healthy patient ASA 2: a patient with a mild systemic disease (mid diabetes, controlled hypertension, obesity x ASA 3: a patient with a severe systemic disease that limits activity (angina, COPD, prior Myocardial infarction) ASA 4: a patient with an incapacitating disease that is a constant threat to life (CHF, renal failure) ASA 5: a moribund patient not expected to survive 24 hrs. (ruptured aneurysm) ASA 6: a declared brain- patient whose organs are being harvested. For emergent operations, add the letter E after the classification Mallampati Classification Grade 3 Sedation Plan Analgesia, Amnesia, Plan communicated to team members, Discussed options with patient/fam, Discussed risks with patient/fam The patient is an appropriate candidate to undergo the planned procedure, sedation, and anesthesia. The patient immediately re-assessed prior to indication. MILDRED MIXON MD Jun 15, 2019 10:49
[2019-06-15] MEDS ORDERED: PATIENT MAY USE OWN MEDS, ALL PO SCH (11:30)
[2019-06-15] MEDS ORDERED: NS IV 1000 ML 1,000 ML IV SCH (11:30)
--- NOTE | 2019-06-15 11:33 | Discharge Inst-Post CATH ---
Discharge Inst-CATH/EP Problems Reviewed?: Yes Post Cardiac Cath/EP D/C Inst Follow Up/Plan Appointment with Dr. Menchaca's office in 2-4 weeks <b>CARDIAC CATH/EP PROCEDURE DISCHARGE INSTRUCTIONS</b> ACTIVITY * Go Home directly and rest. * Limit activity of the leg (or wrist if it was used) for 7 days including aerobics, swimming, jogging, bicycling, etc. * Restrict stair-climbing for 7 days if possible, if not, climb up with your non-cath leg, then bring together on the same step. * Avoid lifting, pushing, pulling or excessive movement of the affected extremity for 7 days. * Customary sexual activity may be resumed after 2 days-use caution not to use a position that strains or causes pain to the affected extremity. * No driving for 24 hours. * NO SMOKING. * Avoid straining for bowel movements for 7 days. * Gentle walking on level ground is allowed. * Returning to work will depend on the type of procedure and the results. Your doctor will discuss this with you. CALL YOUR DOCTOR FOR ANY OF THE FOLLOWING: *If bleeding from the puncture site occurs- Apply gentle pressure to site with clean cloth and call your doctor or EMS. * If a knot or lump forms under the skin, increases in size, or causes pain. * If bruising appears to be worsening or moving further down your leg instead of disappearing. * Temperature above 101 F. CARE OF YOUR GROIN INCISION; * Bruising or purple discoloration of the skin near the puncture site is common. * You may shower only, no bathtub bathing for 5 days. Be careful to avoid slipping as your leg may feel stiff. * If a closure device was used on your femoral artery, please see the attached guide regarding care of the device and your leg. * Leave dressing on FOR 24 hours. CARE OF YOUR WRIST INCISION; * Bruising or purple discoloration of the skin near the puncture site is common. * You may shower. * DO NOT submerge wrist. * Leave dressing on FOR 24 hours. MILDRED MENCHACA MD Jun 15, 2019 11:33
[2019-06-15] MEDS ORDERED: FOLI1TAB24 PO (11:35)
[2019-06-15] MEDS ORDERED: METO-351 PO (11:35)
--- NOTE | 2019-06-15 11:40 | Cardiac Cath Report ---
Cardiac Cath Report Physician (s)/Extruder Operator (s) Physician MILDRED MIXON MD Pre-Procedure Diagnosis Pre-Procedure Diagnosis: CAD Post-Procedure Note Procedure Start Date: Jun 15, 2019 Name of Procedure: [facility] Aortic arch angiogram Findings/Procedure Note PROCEDURE NOTE: After explaining the procedure to the patient, all pros and cons were explained, all questions were answered. The patient signed the consent and then he was placed on the cardiac catheterization laboratory. Groin was prepped SL fashion local anesthesia was used. Sheath placed in the Rt femoral artery. Marvin right and left catheter were used to access the coronary system. Pigtail was used to access the left ventricular cavity. Left ventriculogram was not done, pressure was measured Aortic arch angiogram was done At the end of the procedure the sheath was removed. Closure device was used FINDINGS: Hemodynamics LV 160/11 Aorta 160/80 mean 112 ANATOMY: Left Main is free of obstructive disease Left Anterior Descending has mild disease Left Circumflex has mild disease Right Coronory Artery is small nondominant, no significant disease LV Gram was not done, pressure was measured Aorta evaluation done with arch angiogram showing normal arch, no dissection or aneurysm, normal origin of the innominate, left carotid and left subclavian arter CONCLUSION: 1. Mild coronary artery disease, nonobstructive disease 2. Normal left ventricular end-diastolic 3. Normal aortic arch and great vessels of the neck DISCUSSION AND RECOMMENDATION: medical therapy Anesthesia Type: Conscious Sedation Estimated blood loss (mL): 25 ml Contrast Amount: 50 ml Total Radiation Dose: 239 mGy Post-Procedure Diagnosis (1) Other chest pain (2) Smoker (3) Hypertension MILDRED MIXON MD Jun 15, 2019 11:40
[2019-06-15] MEDS ORDERED: THIAMINE 100 MG (VITAMIN B-1) TAB PO NR (11:45)
--- NOTE | 2019-06-15 12:10 | NUR ---
PT RECEIVED FROM [employer] VIA BED. REPORT GIVEN TO DIANA MCLEAN IN DAY SURG.
--- NOTE | 2019-06-15 12:46 | STRESS TEST ---
DATE OF SERVICE: AN EXERCISE MYOVIEW STRESS TEST REPORT REFERRING PHYSICIAN: Dr. Alvarado Baseline heart rate is 73, baseline blood pressure 152/96. Baseline EKG is sinus rhythm with frequent PVCs and ventricular bigeminy. In summary, the patient was injected with 10.16 mCi of technetium-99 Myoview and the resting images were obtained. Then, the patient started exercising with a baseline heart rate, blood pressure and EKG mentioned above. He was able to exercise for a total of 5 minutes 30 seconds on standard Edson protocol. With peak exercise level, EKG was showing minimal nondiagnostic changes. Blood pressure was 187/83. During recovery, heart rate and blood pressure returned to baseline, returned to have frequent PVCs and ventricular bigeminy. The resting and stress images were reviewed and compared in the short axis, horizontal long axis and vertical long axis views. Review of the images showed diaphragmatic attenuation with decreased uptake involving the whole inferior wall, which is fixed, there is a decreased uptake involving the apex and inferoapical segment with mild reversibility. Stress score was inaccurate. TID value is 0.97. On the gated images, the left ventricle appeared to be in normal size with hypokinesia at the septum and inferior wall. Calculated ejection fraction is 43%. CONCLUSION: 1. Good exercise tolerance for a total of 5 minutes 30 seconds on standard Edson protocol, total of 7.1 METS achieving 86% of maximum expected heart rate. 2. Baseline frequent PVCs and ventricular bigeminy improved during exercise and returned in recovery. 3. Nondiagnostic EKG changes with exercise returned to baseline during recovery. 4. Diaphragmatic attenuation with fixed defect involving the inferior wall, mild ischemia at the apex. 5. Normal left ventricular size with hypokinesia at the anterior wall and anterior septum. Calculated ejection fraction 43%. Job ID: [id number] DocumentID: [id number] Dictated Date: 06/15/2019 11:50:27 Erp Developer Date: 06/15/2019 12:45:40 Dictated By: MILDRED MIXON MD
[2019-06-15] MEDS ORDERED: THIA100T80 PO (13:06)
--- NOTE | 2019-06-15 13:06 | Discharge Summary ---
Discharge Summary Hospital Course Was the Problem List Reviewed?: Yes Problems/Dx: (1) Other chest pain Status: Acute (2) Smoker (3) Hypertension Hospital Course Date of Admission: Jun 13, 2019 at 13:15 Admission Diagnosis : Family Physician/Provider: Maurice Alvarado MD Date of Discharge: 06/15/19 Discharge Diagnosis: Chest pain with abnl EST but no stenosis on cardiac cath, HTN, Smoker Hospital Course: Hospital course: Pt had a lengthy hospital course, he was admitted for risk- stratification due to chest pain, cardiac stress test was performed which was a bnormal, Pt underwent cardiac cath, no evidence of any stenosis of the coronary arteries and Pt was deemed stable for discharge, smoking cessation was counseled, ETOH abuse curtailed and he will have close follow-up with [facility]. Labs and Pending Lab Test: Laboratory Tests 06/15/19 05:30: Sodium Level 139, Potassium Level 4.6, Chloride Level 105, Carbon Dioxide Level 25, Anion Gap 9, Blood Urea Nitrogen 8, Creatinine 0.97, Estimat Glomerular Filtration Rate > 60, BUN/Creatinine Ratio 8, Glucose Level 90, Calcium Level 9.4, Corrected Calcium 9.4, Total Bilirubin 0.5, Aspartate Amino Transf (AST/SGOT) 22, Alanine Aminotransferase (ALT/SGPT) 20, Alkaline Phosphatase 54, Total Protein 6.6, Albumin 4.0 06/15/19 05:35: White Blood Count 6.0, Red Blood Count 4.61, Hemoglobin 15.0, Hematocrit 45, Mean Corpuscular Volume 97, Mean Corpuscular Hemoglobin 33, Mean Corpuscular Hemoglobin Concent 33, Red Cell Distribution Width 13.6, Platelet Count 273, Me an Platelet Volume 9.5, Neutrophils (%) (Auto) 52, Lymphocytes (%) (Auto) 26, Monocytes (%) (Auto) 12, Eosinophils (%) (Auto) 8, Basophils (%) (Auto) 2, Neutrophils # (Auto) 3.1, Lymphocytes # (Auto) 1.6, Monocytes # (Auto) 0.7, Eosinophils # (Auto) 0.5H, Basophils # (Auto) 0.1 Home Meds Active Vitamin B-1 (Thiamine HCl) 100 Mg Tablet 100 Mg PO DAILY@0700 Folic Acid 1 Mg Tablet 1 Mg PO DAILY Toprol Xl (Metoprolol Succinate) 25 Mg Tab.er.24h 25 Mg PO DAILY Reported Centrum Adults Tablet (Multivitamin/Iron/Folic Acid) 1 Each Tablet 1 Tab PO DAILY Chantix (Varenicline Tartrate) 1 Mg Tablet 1 Mg PO DAILY Aspirin 81 Mg Tab.chew 162 Mg PO DAILY TAKES 2 (81MG) TABLETS Amlodipine Besylate 5 Mg Tablet 5 Mg PO DAILY Assessment/Pt Instructions [facility] 1 week Discharge Planning: <30 minutes discharge planning Discharge Instructions Discharge Diet: No Restrictions Pneumonia Vaccine Order Indica: Yes Discharge Physical Examination Vital Signs Vital Signs Date Time Temp Pulse Resp B/P (MAP) Pulse Ox O2 Delivery O2 Flow Rate FiO2 06/15/19 08:45 98 Room Air 06/15/19 07:39 36.5 58 18 127/76 (93) Allergies: Coded Allergies: No Known Drug Allergies (Unverified , 02/09/19) Discharge Summary Date of Admission Jun 13, 2019 at 13:15 Date of Discharge Discharge Date: Jun 15, 2019 Discharge Time: 1600 Admission Diagnosis Assessment: Chest pain Smoker heavy HTN Plan: Monitor closely Lipid panel Smoking cessation Cardiology appreciated Discharge Diagnosis Assessment: Chest pain Smoker heavy PVD Abnl EST cath scheduled Plan: Cath tomorrow (1) Other chest pain Status: Acute (2) Smoker (3) Hypertension Clinical Quality Measures AMI/AHF: ASA po Prior to arrival: No DVT/VTE Risk/Contraindication: Risk Factor Score Per Nursin RFS Level Per Nursing on Admit: 4+=Very High DIONNE MARCH DO Jun 15, 2019 13:06
[2019-06-16] MEDS ORDERED: THIAMINE 100 MG (VITAMIN B-1) TAB PO SCH (07:00)
== END 2019-06-15 16:20 | disposition home or self-care (01) ==
LOC: EDUNIT# 10:54 → ER FS 10:56 → 4TH 13:15
PROVIDERS: ADMIT Internal Medicine; ATTEND Internal Medicine
DX: I25.10 Atherosclerotic heart disease of native coronary artery without angina pectoris (principal); I10 Essential (primary) hypertension; I49.3 Ventricular premature depolarization; G44.89 Other headache syndrome; J44.9 Chronic obstructive pulmonary disease, unspecified; F17.210 Nicotine dependence, cigarettes, uncomplicated; Z86.73 Personal history of transient ischemic attack (TIA), and cerebral infarction without residual deficits; Z90.89 Acquired absence of other organs; Z83.6 Family history of other diseases of the respiratory system
CPT/HCPCS: 36415; 70450; 71046; 78452; 80053; 80061; 83880; 84484; 85025; 85610; 85730; 93005; 93017; 93306; 93458; 96374; G0378

== ENCOUNTER 2021-06-20 10:04 | Emergency (ER) | payer BC ==
[~2021-06-20] VITALS: Ht 182.8 cm; Wt 83.5 kg
[~2021-06-20 10:04] MED LIST changes: +AMLO-250 PO; +ASPI-999 PO; -CIPR500T4 PO; +CIPR500T5 PO; +Chantix; +FOLI1TAB33 PO; +METO-351 PO; +MULT-1067 PO; +THIA100T80 PO; +VARE1TAB22 PO
--- NOTE | 2021-06-20 10:19 | ED GI ---
General Chief Complaint: Abdominal/GI Problems Stated Complaint: ABD PAIN History of Present Illness Date Seen by Provider: Jun 20, 2021 Time Seen by Provider: 10:15 Initial Comments 60-year-old male presents with epigastric pain. The epigastric pain has been there for weeks. He presents today because he is "tired of it" patient has not seen a provider for this. He has tried some Pepto and [place]. When he drinks milk it seems to get better. He admits that daily alcohol use. Patient has some mild nausea but no vomiting or diarrhea. Allergies and Home Medications Allergies Coded Allergies: No Known Drug Allergies (Unverified , 02/09/19) Patient Home Medication List Home Medication List Reviewed: Yes Aspirin (Aspirin) 81 Mg Tab.chew, 162 MG PO DAILY, (Reported) Entered as Reported by: CARLO DAILEY on 06/13/19 1507 Folic Acid (Folic Acid) 1 Mg Tablet, 1 MG PO DAILY Prescribed by: MILDRED MIXON on 06/15/19 1135 Metoprolol Succinate (Toprol Xl) 25 Mg Tab.er.24h, 25 MG PO DAILY Prescribed by: MILDRED MIXON on 06/15/19 1135 Multivitamin/Iron/Folic Acid (Centrum Adults Tablet) 1 Each Tablet, 1 TAB PO DAILY, (Reported) Entered as Reported by: BRIANNA WILLIS on 06/13/19 1539 Thiamine HCl (Vitamin B-1) 100 Mg Tablet, 100 MG PO DAILY@0700 Prescribed by: DIONNE MARCH on 06/15/19 1306 Varenicline Tartrate (Chantix) 1 Mg Tablet, 1 MG PO DAILY, (Reported) Entered as Reported by: BRIANNA WILLIS on 06/13/19 1539 Review of Systems Review of Systems Constitutional: No chills, No fever Respiratory: Denies Cough Cardiovascular: Denies Chest Pain Gastrointestinal: See HPI, Abdominal Pain; Denies Diarrhea; Nausea; Denies Vomiting Musculoskeletal: no symptoms reported Skin: no symptoms reported Psychiatric/Neurological: No Symptoms Reported Endocrine: No Symptoms Reported Past Okzpfha-Oxobfz-Slovbo Hx Immunizations Up To Date Tetanus Booster (TDap): Unknown Seasonal Allergies Seasonal Allergies: No Past Medical History Surgeries: Yes (Bilat Inguinal hernia, Colonoscopy with polypectomy) Abdominal, Appendectomy, Orthopedic Respiratory: Yes (Tobaccism) COPD Currently Using CPAP: No Currently Using BIPAP: No Cardiac: Yes (Frequent PVC's, Carotid artery disease) Heart Murmur, Hypertension Neurological: No Sexually Transmitted Disease: No HIV/AIDS: No Genitourinary: No Gastrointestinal: Yes (Hx gastritis, duodenitis, H. pylori) Musculoskeletal: Yes (Spondylolysis lumbar region hx, Hx mallet finger, Fx 4th MC bone R hand) Fractures Endocrine: No HEENT: No Cancer: No (Tubular adenoma colon (polypectomy) 2018) Psychosocial: No Integumentary: No Blood Disorders: No Family Medical History Cataracts 19 MOTHER Gastroenteritis 19 MOTHER Glaucoma 19 MOTHER Hypercholesterolemia 19 FATHER Neoplasm 19 FATHER Parkinson's disease 19 FATHER Respiratory disorder 19 FATHER COPD Physical Exam Vital Signs Vital Signs - First Documented 06/20/21 10:09 Temp 36.7 Pulse 82 Resp 11 B/P (MAP) 164/94 (117) Pulse Ox 98 O2 Delivery Room Air Capillary Refill : Height/Weight/BMI Height: '" Weight: lbs. oz. kg; 22.71 BMI Method: General Appearance: no apparent distress Respiratory: lungs clear, normal breath sounds Cardiovascular: normal peripheral pulses, regular rate, rhythm Gastrointestinal: soft; No distended, No guarding, No rebound; tenderness (mild epigastric ) Neurologic/Psychiatric: alert, normal mood/affect, oriented x 3 Skin: normal color, warm/dry Progress/Results/Core Measures Results/Orders Lab Results Laboratory Tests Test 06/20/21 10:13 Range/Units White Blood Count 10.7 4.3-11.0 10^3/uL Red Blood Count 4.35 4.30-5.52 10^6/uL Hemoglobin 14.7 13.3-17.7 g/dL Hematocrit 43 40-54 % Mean Corpuscular Volume 98 80-99 fL Mean Corpuscular Hemoglobin 34 25-34 pg Mean Corpuscular Hemoglobin Concent 34 32-36 g/dL Red Cell Distribution Width 12.7 10.0-14.5 % Platelet Count 348 130-400 10^3/uL Mean Platelet Volume 9.5 9.0-12.2 fL Immature Granulocyte % (Auto) 1 % Neutrophils (%) (Auto) 66 42-75 % Lymphocytes (%) (Auto) 18 12-44 % Monocytes (%) (Auto) 12 0-12 % Eosinophils (%) (Auto) 3 0-10 % Basophils (%) (Auto) 1 0-10 % Neutrophils # (Auto) 7.1 1.8-7.8 X 10^3 Lymphocytes # (Auto) 2.0 1.0-4.0 X 10^3 Monocytes # (Auto) 1.2 H 0.0-1.0 X 10^3 Eosinophils # (Auto) 0.3 0.0-0.3 10^3/uL Basophils # (Auto) 0.1 0.0-0.1 10^3/uL Immature Granulocyte # (Auto) 0.1 0.0-0.1 10^3/uL Sodium Level 140 135-145 MMOL/L Potassium Level 3.9 3.6-5.0 MMOL/L Chloride Level 98 98-107 MMOL/L Carbon Dioxide Level 29 21-32 MMOL/L Anion Gap 13 5-14 MMOL/L Blood Urea Nitrogen 9 7-18 MG/DL Creatinine 0.86 0.60-1.30 MG/DL Estimat Glomerular Filtration Rate 98 BUN/Creatinine Ratio 10 Glucose Level 116 H 70-105 MG/DL Calcium Level 9.3 8.5-10.1 MG/DL Corrected Calcium 9.1 8.5-10.1 MG/DL Total Bilirubin 0.4 0.1-1.0 MG/DL Aspartate Amino Transf (AST/SGOT) 23 5-34 U/L Alanine Aminotransferase (ALT/SGPT) 21 0-55 U/L Alkaline Phosphatase 94 40-136 U/L Total Protein 7.0 6.4-8.2 GM/DL Albumin 4.3 3.2-4.5 GM/DL Lipase 25 8-78 U/L My Orders Orders - EDDIE GONGVOR L DO Cbc With Automated Diff (06/20/21 10:24) Comprehensive Metabolic Panel (06/20/21 10:24) Lipase (06/20/21 10:24) Famotidine Injection (Pepcid Injection) (06/20/21 10:24) Abdomen Flat & Upright/Decub (06/20/21 10:24) Vital Signs/I&O 06/20/21 10:09 Temp 36.7 Pulse 82 Resp 11 B/P (MAP) 164/94 (117) Pulse Ox 98 O2 Delivery Room Air Progress Progress Note : Progress Note Patient's symptoms consistent with gastritis 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 None recommend he start Pepcid and omeprazole [id number]. I will give him a GI cocktail to help calm it down today. Discussed with him to monitor how much he drinks. He should follow-up with her primary care provider for further outpatient evaluation since his pain has been going on for a couple weeks. Patient was stable and discharged home Diagnostic Imaging Diagonstic Imaging: Xray Plain Films/CT/US/NM/MRI: abdomen Comments Date of Exam:06/20/21 ABDOMEN FLAT & UPRIGHT/DECUB INDICATION: Abdominal pain. TIME OF EXAM: 10:31 AM No free air is identified. Bowel gas pattern is nonobstructed. No pathologic calcifications are seen. IMPRESSION: No acute feature detected. Departure Impression Primary Impression: Gastritis Qualified Codes: K29.70 - Gastritis, unspecified, without bleeding Disposition: HOME, SELF-CARE Condition: Stable Departure-Patient Inst. Referrals: PEE GIBBONS MD (PCP/Family) Primary Care Physician Patient Instructions: Gastritis ED Add. Discharge Instructions: Omeprazole or similar medication daily as directed on package Pepcid or similar medication twice daily as directed on package You can consult with the pharmacist at [facility] or other pharmacy for recommendations Please limit your alcohol intake as this will exacerbate your gastritis All discharge instructions reviewed with patient and/or family. Voiced u nderstanding. HECTOR GONG DO Jun 20, 2021 10:19
[2021-06-20] MEDS ORDERED: FAMOTIDINE 20MG/2ML IV (PEPCID) IV STA (10:24)
[2021-06-20 10:37] LABS: HEMATOCRIT 43 % (40-54); HEMOGLOBIN 14.7 g/dL (13.3-17.7); MEAN CORPUSCULAR HEMOGLOBIN 34 pg (25-34); MEAN CORPUSCULAR HGB CONC 34 g/dL (32-36); MEAN CORPUSCULAR VOLUME 98 fL (80-99); MEAN PLATELET VOLUME 9.5 fL (9.0-12.2); PLATELET COUNT 348 10^3/uL (130-400); WHITE BLOOD COUNT 10.7 10^3/uL (4.3-11.0)
[2021-06-20 10:38] LABS: BASOPHILS # (AUTO) 0.1 10^3/uL (0.0-0.1); BASOPHILS % (AUTO) 1 % (0-10); EOSINOPHILS # (AUTO) 0.3 10^3/uL (0.0-0.3); EOSINOPHILS % (AUTO) 3 % (0-10); LYMPHOCYTES % (AUTO) 18 % (12-44); MONOCYTES # (AUTO) 1.2 X 10^3 (0.0-1.0); MONOCYTES % (AUTO) 12 % (0-12); NEUTROPHILS # (AUTO) 7.1 X 10^3 (1.8-7.8); NEUTROPHILS % (AUTO) 66 % (42-75)
[2021-06-20 10:44] LABS: POTASSIUM 3.9 MMOL/L (3.6-5.0)
[2021-06-20 10:45] LABS: ALBUMIN 4.3 GM/DL (3.2-4.5); BILIRUBIN,TOTAL 0.4 MG/DL (0.1-1.0); CALCIUM 9.3 MG/DL (8.5-10.1); CREATININE SERUM 0.86 MG/DL (0.60-1.30)
--- NOTE | 2021-06-20 10:49 | Diagnostic Imaging Report ---
INDICATION: Abdominal pain. TIME OF EXAM: 10:31 AM No free air is identified. Bowel gas pattern is nonobstructed. No pathologic calcifications are seen. IMPRESSION: No acute feature detected. Dictated by: Dictated on workstation # [id number]
[2021-06-20 11:14] VITALS: BP 154/86
[2021-06-20] MEDS ORDERED: ANTACID SUSP 30 ML UDC (MYLANTA) PO ONE (11:15)
[2021-06-20] MEDS ORDERED: LIDOCAINE 2% VISCOUS 15 ML UDC PO ONE (11:15)
== END 2021-06-20 11:15 | disposition home or self-care (01) ==
LOC: ER FS 10:05
DX: K29.70 Gastritis, unspecified, without bleeding (principal); I10 Essential (primary) hypertension; J44.9 Chronic obstructive pulmonary disease, unspecified
CPT/HCPCS: 36415; 74019; 80053; 83690; 85025

== ENCOUNTER 2021-11-22 12:18 | Outpatient (CLI) | payer BC ==
[~2021-11-22] VITALS: Ht 183 cm; Wt 78.6 kg
[2021-11-22] MEDS ORDERED: LISI20TA26 PO (13:37)
[2021-11-22] MEDS ORDERED: VITA1CAP PO (13:46)
[2021-11-25] MEDS ORDERED: PANT40TA2 PO (13:19)
== END 2021-11-22 16:01 | disposition home or self-care (01) ==
LOC: PREOP 12:18
PROVIDERS: ATTEND Surgery
DX: Z01.818 Encounter for other preprocedural examination (principal)

== ENCOUNTER 2021-11-25 11:02 | Day surgery (SDC) | payer BC ==
[~2021-11-25] VITALS: Ht 182.9 cm; Wt 78.6 kg
[~2021-11-25 11:02] MED LIST changes: +LISI20TA26 PO; +VITA1CAP PO
[2021-11-25] MEDS ORDERED: LACTATED RINGERS 1,000 ML IV ONE (11:16)
[2021-11-25] MEDS ORDERED: LACTATED RINGERS 1,000 ML IV STA (11:42)
--- NOTE | 2021-11-25 11:42 | Progress Note-Pre Operative ---
Pre-Operative Progress Note H&P Reviewed The H&P was reviewed, patient examined and no changes noted. Time Seen by Provider: 11:41 Date H&P Reviewed: Nov 25, 2021 Time H&P Reviewed: 11:41 Pre-Operative Diagnosis: Dysphagia, Screening colon PARRISH SANDERS DO Nov 25, 2021 11:42
[2021-11-25] MEDS ORDERED: HURRICAINE EXT TUBE (BENZOCAINE) XX PRN (11:45)
[2021-11-25 12:15] VITALS: BP 148/114
[2021-11-25] MEDS ORDERED: MIDAZOLAM 2 MG/2 ML (VERSED) VIAL ONE (12:39)
[2021-11-25] MEDS ORDERED: PROPOFOL INJECTION 50 ML IV ONE (12:39)
[2021-11-25 13:10] VITALS: BP 130/67
[2021-11-25 13:15] VITALS: BP 142/71
--- NOTE | 2021-11-25 13:18 | Progress Note-Post Operative ---
Post-Operative Progess Note Surgeon (s)/Construction Electrician (s) Surgeon PARRISH SANDERS DO Construction Electrician: none Pre-Operative Diagnosis Dysphagia, Screening colon Post-Operative Diagnosis duodenitis Gastritis sliding hiatal hernia esophagitis Polyp diverticula int hemorrhoids grade II Procedure & Operative Findings Date of Procedure 11/25/21 Procedure Performed/Findings EGD with bx Colonoscopy with hot bx PROCEDURE NOTE: After informed consent was obtained, the patient was brought to the endoscopy suite, placed in bed in left lateral decubitus position. He was administered IV sedation by the LEAD MAINTENANCE TECHNICIAN who then monitored vitals the entire time, heart rate, blood pressure and pulse ox and the scope was inserted down the mouth through the esophagus into the stomach. On the way down, noted some mild esophagitis, took a picture, pushed into the stomach and noted at least moderate gastritis. Pushed past the antrum into the duodenum and noted mild to moderate duodenitis. Elected to do a biopsy of the duodenum; looked like 2nd portion was improving and did not have as much inflammation. I think there was an ulcer in the duodenum; took a picture. Pulled back and did a biopsy of the antrum and then retroflexed the scope. Elected to do a biopsy of the body of the stomach. I saw a sliding hiatal hernia, took a picture of this and then pulled the scope into the GE junction, took another picture of the esophagitis and then did a biopsy of the GE junction. Pushed the scope back into the stomach, suctioned all the air out of the stomach. At this point pulled the scope up the esophagus and out the mouth. I took pictures of the esophagus on the way up and did not see any thing to indicate a reason for dyphagia; took pictures. Switched camera, switched gloves, went down below and started the colonoscopy. Pushed all the way into about 140 cm to get all the way to cecum, took a picture of the appendiceal orifice, noted the ileocecal valve and then slowly withdrew the scope, insufflating to look circumferentially at the boo starting in the cecum, up the ascending colon and found a polyp; elected to do a hot biopsy of it, took two bites. Continued to the hepatic flexure, then down the transverse colon, splenic flexure, into the descending colon and down into the sigmoid. I saw diverticula in the descending and sigmoid; had taken a picture. Finally into the rectum, retroflexed in the rectal vault and saw some internal hemorrhoids (probably grade II) and took a picture of this. The patient tolerated the procedure and he recovered in the endoscopy suite. Recommended for repeat colonoscopy in 5 years Anesthesia Type IV sedation by LEAD MAINTENANCE TECHNICIAN Estimated Blood Loss Estimated blood loss (mL): scant Specimens/Packing Specimens Removed duodenal bx antral bx body of stomach bx GE jxn bx Asc colon polyp PARRISH SANDERS DO Nov 25, 2021 13:18
[2021-11-25] MEDS ORDERED: PANT40TA2 PO (13:19)
[2021-11-25 13:20] VITALS: BP 147/87
--- NOTE | 2021-11-25 13:20 | Endoscopy Discharge Instruct ---
Endo Procedure/Findings Findings 1.: Duodenal Ulcer, Gastritis 2.: Hiatal Hernia 3.: Polyp 4.: Diverticulosis, Internal Hemorrhoids Discharge Instructions - Activity: You might feel a little sleepy until tomorrow. This is due to the medicine you received to relax you. Until tomorrow, you should: NOT drive a car, operate machinery or power tools. NOT drink any alcoholic beverages. NOT make any important decisions or sign importortant papers. Do not return to work until tomorrow, unless otherwise instructed. Resume previous activities tomorrow. Diet: Start by taking liquids. If you tolerate liquids, advance to solid food. 1.: EGD in 6-8 weeks 2.: Colonscopy in 5 years Notify Physician - If you experience excessive bleeding, unusual abdominal pain, fever, or chest pain, contact your doctor immediately. PARRISH SANDERS DO Nov 25, 2021 13:20
[2021-11-25 13:45] VITALS: BP 155/94
--- NOTE | 2021-11-25 13:52 | Anesthesia-General Post-Op ---
MAC Patient Condition Mental Status/LOC: Same as Preop Cardiovascular: Satisfactory Nausea/Vomiting: Absent Respiratory: Satisfactory Pain: Controlled Complications: Absent Post Op Complications Complications None Follow Up Care/Instructions Patient Instructions None needed. Anesthesiology Discharge Order Discharge Order Patient is doing well, no complaints, stable vital signs, no apparent adverse anesthesia problems. No complications reported per nursing. STEFANIE VERDUGO ACCOUNT LIAISON Nov 25, 2021 13:52
== END 2021-11-25 14:00 | disposition home or self-care (01) ==
LOC: ENDO 11:02
PROVIDERS: ATTEND Surgery
DX: Z12.11 Encounter for screening for malignant neoplasm of colon (principal); K29.80 Duodenitis without bleeding; K29.50 Unspecified chronic gastritis without bleeding; B96.81 Helicobacter pylori [H. pylori] as the cause of diseases classified elsewhere; K44.9 Diaphragmatic hernia without obstruction or gangrene; K20.90 Esophagitis, unspecified without bleeding; D12.2 Benign neoplasm of ascending colon; K57.30 Diverticulosis of large intestine without perforation or abscess without bleeding; K64.1 Second degree hemorrhoids; F17.210 Nicotine dependence, cigarettes, uncomplicated; Z79.82 Long term (current) use of aspirin

== ENCOUNTER 2021-12-22 12:52 | Emergency (ER) | payer BC ==
[~2021-12-22 12:52] MED LIST changes: +PANT40TA2 PO
[2021-12-22] MEDS ORDERED: LORazepam 0.5 MG (ATIVAN) TABLET PO STA ×2 (13:00→15:03)
[2021-12-22] MEDS ORDERED: ONDANSETRON 4 MG/2 ML (SDV) Z0FRAN IVP STA (13:00)
[2021-12-22] MEDS ORDERED: NS IV 1000 ML 1,000 ML IV SCH (13:00)
--- NOTE | 2021-12-22 13:06 | ED General ---
General Chief Complaint: General Problems/Pain Stated Complaint: TREMORS Source of Information: Patient, EMS History of Present Illness Date Seen by Provider: Dec 22, 2021 Time Seen by Provider: 12:52 Initial Comments 61-year-old male presenting from home by EMS. He started having nausea vomiting with diarrhea renal 3 this morning. He states that he has not had any alcohol for almost a week. He denies having any seizure or syncope today. He has fallen previously but again nothing in the last few days. He recently had colonoscopy and EGD done at [facility]. He states otherwise he has high blood pressure and takes lisinopril for. He follows with Dr. Gibbons. He has had problems like this in the past but does not know what caused it previously. Timing/Duration: 12-24 Hours Severity: Severe Associated Systoms: No Chest Pain, No Cough; Diaphoresis; No Fever/Chills, No Headaches, No Loss of Appetite; Malaise, Nausea/Vomiting; No Rash, No Seizure, No Shortness of Air, No Syncope; Weakness Allergies and Home Medications Allergies Coded Allergies: No Known Drug Allergies (Unverified , 02/09/19) Patient Home Medication List Home Medication List Reviewed: Yes Folic Acid (Folic Acid) 1 Mg Tablet, 1 MG PO DAILY Prescribed by: MILDRED MIXON on 06/15/19 1135 Lisinopril (Lisinopril) 20 Mg Tablet, 20 MG PO DAILY, (Reported) Entered as Reported by: KARLEY REZA on 11/22/21 1337 Magnesium Oxide (Magnesium Oxide) 400 Mg Tablet, 400 MG PO DAILY Prescribed by: NEVIN MANCERA on 12/22/21 1637 Metoprolol Succinate (Toprol Xl) 25 Mg Tab.er.24h, 25 MG PO DAILY Prescribed by: MILDRED MIXON on 06/15/19 1135 Multivitamin/Iron/Folic Acid (Centrum Adults Tablet) 1 Each Tablet, 1 TAB PO DAILY, (Reported) Entered as Reported by: BRIANNA WILLIS on 06/13/19 1539 Ondansetron (Ondansetron Odt) 4 Mg Tab.rapdis, 4 MG PO Q6H PRN for NAUSEA/VOMITING Prescribed by: NEVIN MANCERA on 12/22/21 1637 Pantoprazole Sodium (Protonix) 40 Mg Tablet.dr, 40 MG PO DAILY Prescribed by: PARRISH B DELMAN on 11/25/21 1319 Vitamin B Complex (Vitamin B Complex) 1 Each Capsule, 1 EACH PO DAILY, (Reported) Entered as Reported by: KARLEY REZA on 11/22/21 1346 Review of Systems Review of Systems Constitutional: diaphoresis EENTM: no symptoms reported Respiratory: no symptoms reported Cardiovascular: palpitations Gastrointestinal: diarrhea, nausea, vomiting Genitourinary: decreased output; No dysuria Musculoskeletal: no symptoms reported Skin: No rash Psychiatric/Neurological: Anxiety, Other (shaking all over) Hematologic/Lymphatic: Denies Blood Clots Past Geyixfb-[id number]-Hloxhx Hx Patient Social History Alcohol Use?: Yes Alcohol Frequency: Daily Immunizations Up To Date Tetanus Booster (TDap): Unknown First/Initial COVID19 Vaccinat: 08/07/20 Second COVID19 Vaccination Bruno: 09/04/20 Third COVID19 Vaccination Date: 08/07/20 Seasonal Allergies Seasonal Allergies: No Past Medical History Surgery/Hospitalization HX: HTN, Alcohol use daily Surgeries: Yes (Bilat Inguinal hernia, Colonoscopy with polypectomy) Abdominal, Appendectomy, Orthopedic Respiratory: Yes (Tobaccism) COPD Currently Using CPAP: No Currently Using BIPAP: No Cardiac: Yes (Frequent PVC's, Carotid artery disease) Heart Murmur, Hypertension Neurological: No Sexually Transmitted Disease: No HIV/AIDS: No Genitourinary: Yes Bladder Infection Gastrointestinal: Yes (Hx gastritis, duodenitis, H. pylori) Musculoskeletal: Yes (Spondylolysis lumbar region hx, Hx mallet finger, Fx 4th MC bone R hand) Fractures Endocrine: No HEENT: No Cancer: No (Tubular adenoma colon (polypectomy) 2018) Psychosocial: No Integumentary: No Blood Disorders: No Family Medical History Cataracts 19 MOTHER Gastroenteritis 19 MOTHER Glaucoma 19 MOTHER Hypercholesterolemia 19 FATHER Neoplasm 19 FATHER Parkinson's disease 19 FATHER Respiratory disorder 19 FATHER COPD Physical Exam Vital Signs Vital Signs - First Documented 12/22/21 12/22/21 12:52 15:13 Temp 36.9 Pulse 117 Resp 20 B/P (MAP) 150/91 Pulse Ox 98 Capillary Refill : Height, Weight, BMI Height: '" Weight: lbs. oz. kg; 23.49 BMI Method: General Appearance: Anxious, Chronically ill, Moderate Distress (anxious with generalized tremors) Eyes: Bilateral Eye PERRL, Bilateral Eye EOMI HEENT: PERRL/EOMI, Normal ENT Inspection, Pharynx Normal Neck: Full Range of Motion, Normal Inspection, Non Tender, Supple Respiratory: Chest Non Tender, Lungs Clear, Normal Breath Sounds, No Accessory Muscle Use, No Respiratory Distress Cardiovascular: Normal Peripheral Pulses, Tachycardia Gastrointestinal: Normal Bowel Sounds, No Pulsatile Mass, Non Tender, Soft Rectal: Deferred Extremity: Normal Capillary Refill, Normal Range of Motion, No Pedal Edema Neurologic/Psychiatric: Alert, Oriented x3, volleyball player II-XII Norm as Tested Skin: Diaphoresis Progress/Results/Core Measures Suspected Sepsis SIRS Temperature: Pulse: Respiratory Rate: Laboratory Tests 12/22/21 13:00: White Blood Count 11.3H Blood Pressure / Mean: Laboratory Tests 12/22/21 13:00: Creatinine 0.92, Platelet Count 289, Total Bilirubin 1.3H Results/Orders Lab Results Laboratory Tests Test 12/22/21 13:00 12/22/21 15:12 Range/Units White Blood Count 11.3 H 4.3-11.0 10^3/uL Red Blood Count 4.28 L 4.30-5.52 10^6/uL Hemoglobin 15.4 13.3-17.7 g/dL Hematocrit 43 40-54 % Mean Corpuscular Volume 100 H 80-99 fL Mean Corpuscular Hemoglobin 36 H 25-34 pg Mean Corpuscular Hemoglobin Concent 36 32-36 g/dL Red Cell Distribution Width 13.1 10.0-14.5 % Platelet Count 289 130-400 10^3/uL Mean Platelet Volume 9.5 9.0-12.2 fL Immature Granulocyte % (Auto) 0 % Neutrophils (%) (Auto) 83 H 42-75 % Lymphocytes (%) (Auto) 7 L 12-44 % Monocytes (%) (Auto) 9 0-12 % Eosinophils (%) (Auto) 0 0-10 % Basophils (%) (Auto) 2 0-10 % Neutrophils # (Auto) 9.3 H 1.8-7.8 10^3/uL Lymphocytes # (Auto) 0.7 L 1.0-4.0 10^3/uL Monocytes # (Auto) 1.0 0.0-1.0 10^3/uL Eosinophils # (Auto) 0.0 0.0-0.3 10^3/uL Basophils # (Auto) 0.2 H 0.0-0.1 10^3/uL Immature Granulocyte # (Auto) 0.0 0.0-0.1 10^3/uL Neutrophils % (Manual) 84 % Lymphocytes % (Manual) 4 % Monocytes % (Manual) 12 % Sodium Level 137 135-145 MMOL/L Potassium Level 3.5 L 3.6-5.0 MMOL/L Chloride Level 97 L 98-107 MMOL/L Carbon Dioxide Level 21 21-32 MMOL/L Anion Gap 19 H 5-14 MMOL/L Blood Urea Nitrogen 4 L 7-18 MG/DL Creatinine 0.92 0.60-1.30 MG/DL Estimat Glomerular Filtration Rate 93 BUN/Creatinine Ratio 4 Glucose Level 143 H 70-105 MG/DL Calcium Level 9.7 8.5-10.1 MG/DL Corrected Calcium 9.6 8.5-10.1 MG/DL Magnesium Level 1.4 L 1.6-2.4 MG/DL Total Bilirubin 1.3 H 0.1-1.0 MG/DL Aspartate Amino Transf (AST/SGOT) 80 H 5-34 U/L Alanine Aminotransferase (ALT/SGPT) 45 0-55 U/L Alkaline Phosphatase 122 40-136 U/L Troponin I < 0.30 <0.30 NG/ML Pro-B-Type Natriuretic Peptide 177.0 H <125.0 PG/ML Total Protein 7.2 6.4-8.2 GM/DL Albumin 4.1 3.2-4.5 GM/DL Lipase 39 8-78 U/L Salicylates Level < 0.3 L 5.0-20.0 MG/DL Acetaminophen Level < 10 L 10-30 UG/ML Serum Alcohol < 10 <10 MG/DL Influenza Type A (RT-PCR) Not Detected Not Detecte Influenza Type B (RT-PCR) Not Detected Not Detecte SARS-CoV-2 RNA (RT-PCR) Not Detected Not Detecte Urine Color DARK YELLOW Urine Clarity CLEAR Urine pH 6.5 5-9 Urine Specific [place] 1.010 L 1.016-1.022 Urine Protein NEGATIVE NEGATIVE Urine Glucose (UA) NEGATIVE NEGATIVE Urine Ketones NEGATIVE NEGATIVE Urine Nitrite NEGATIVE NEGATIVE Urine Bilirubin NEGATIVE NEGATIVE Urine Urobilinogen 0.2 < = 1.0 MG/DL Urine Leukocyte Esterase NEGATIVE NEGATIVE Urine RBC (Auto) NEGATIVE NEGATIVE Urine RBC NONE /HPF Urine WBC 5-10 H /HPF Urine Squamous Epithelial Cells 2-5 /HPF Urine Crystals NONE /LPF Urine Bacteria MODERATE H /HPF Urine Casts PRESENT /LPF Urine Hyaline Casts 10-25 H /LPF Urine Mucus LARGE H /LPF Urine Culture Indicated YES Urine Opiates Screen NEGATIVE NEGATIVE Urine Oxycodone Screen NEGATIVE NEGATIVE Urine Methadone Screen NEGATIVE NEGATIVE Urine Propoxyphene Screen NEGATIVE NEGATIVE Urine Barbiturates Screen NEGATIVE NEGATIVE Ur Tricyclic Antidepressants Screen NEGATIVE NEGATIVE Urine Phencyclidine Screen NEGATIVE NEGATIVE Urine Amphetamines Screen NEGATIVE NEGATIVE Urine Methamphetamines Screen NEGATIVE NEGATIVE Urine Benzodiazepines Screen NEGATIVE NEGATIVE Urine Cocaine Screen NEGATIVE NEGATIVE Urine Cannabinoids Screen NEGATIVE NEGATIVE My Orders Orders - NEVIN MANCERA MD Ua Culture If Indicated (12/22/21 13:00) Cbc With Automated Diff (12/22/21 13:00) Comprehensive Metabolic Panel (12/22/21 13:00) Alcohol (12/22/21 13:00) Drug Screen Stat (Urine) (12/22/21 13:00) Acetaminophen (12/22/21 13:00) Salicylate (12/22/21 13:00) Ekg Tracing (12/22/21 13:00) Ed Iv/Invasive Line Start (12/22/21 13:00) Monitor-Rhythm Ecg Trace Only (12/22/21 13:00) Ns Iv 1000 Ml (Sodium Chloride 0.9%) (12/22/21 13:00) Lipase (12/22/21 13:00) Troponin I Fs (12/22/21 13:00) Probnp Fs (12/22/21 13:00) Magnesium (12/22/21 13:00) Lorazepam Tablet (Ativan Tablet) (12/22/21 13:00) Ondansetron Injection (Zofran Injectio (12/22/21 13:00) Covid 19 Inhouse Test (12/22/21 13:04) Influenza A And B By Pcr (12/22/21 13:04) Isolation Central Supply Req (12/22/21 13:04) Manual Differential (12/22/21 13:00) Magnesium 1 Gm/100 Ml Ivpb (Magnesium Oh (12/22/21 13:30) Ns Iv 1000 Ml (Sodium Chloride 0.9%) (12/22/21 13:30) Lorazepam Tablet (Ativan Tablet) (12/22/21 15:03) Ns Iv 1000 Ml (Sodium Chloride 0.9%) (12/22/21 15:03) Urine Culture (12/22/21 15:12) Vital Signs/I&O 12/22/21 12/22/21 12/22/21 12:52 15:13 16:49 Temp 36.9 36.6 36.6 Pulse 117 90 85 Resp 20 22 20 B/P (MAP) 150/91 153/82 Pulse Ox 98 97 12/23/21 00:00 Intake Total 3100 ml Balance 3100 ml Capillary Refill : Progress Note #1: Progress Note Check labs as well as electrocardiogram and cardiac enzymes. Obtain COVID and influenza swab since he was having diaphoresis and nausea, vomiting, diarrhea. Since he had not been drinking for over a week we will give IV fluids normal saline 1 L bolus for hydration, Ativan 1 mg p.o. for possible withdrawal and his tremors, Zofran 4 mg IV for nausea and vomiting. Ordered urinalysis along with urine drug screen. Also ordered alcohol level, acetaminophen, salicylate levels. Progress Note #2: Progress Note Symptoms show acute significant abnormality on CBC. His chemistry panel does show low magnesium of 1.4. Cardiac enzymes are negative. He has mild elevation of his total bilirubin to 1.3. Despite IV fluid bolus on arrival he could not provide a urine specimen. He is tolerating oral fluids as well. An additional liter of fluid will be ordered. Also give 1 g of magnesium sulfate help replace as low magnesium in case that might be contributing to his tremors. Repeat the Ativan 1 mg p.o. to help with his tremor as well in case some of this is more alcohol related. Progress Note #3: Progress Note Patient was finally able to provide a urine specimen and urinalysis did not show infection and urine drug screen was negative. Has symptoms are improved and he was tolerating oral intake without vomiting here. Will discharge to home with Zofran to help keep his stomach settled and encouraged to check with primary clinic about continued problems and concerns. Continue to push fluids and avoid alcohol ECG Initial ECG Impression Date: Dec 22, 2021 Initial ECG Impression Time: 13:03 Initial ECG Rate: 108 Initial ECG Rhythm: S.Tach Initial ECG Comparisson: Unchanged (other than increased heart rate) Comment Is tachycardia with frequent PVCs and a heart rate of 108 bpm. [place] interval [address] elevation. There are some artifact on the tracing. QT interval 332 ms with a QTc interval 395 ms. Overall appears similar to tracing from 2020 other than increased heart rate. Departure Impression Primary Impression: Hypomagnesemia Additional Impressions: Nausea vomiting and diarrhea Tremor Dehydration Disposition: HOME, SELF-CARE Condition: Stable Departure-Patient Inst. Decision time for Depature: 16:33 Referrals: PEE GIBBONS MD (PCP) Primary Care Physician Patient Instructions: Nausea and Vomiting, Adult ED, Dehydration, Adult ED, Diarrhea, Adult ED Add. Discharge Instructions: Stay well hydrated and drink more fluids to help stay well hydrated. Take the nausea medicine to help keep your stomach settled. Take magnesium medicine to help replace the magnesium that is low in your blood. Check back with Dr. Gibbons this week about your symptoms and to get blood rechecked. All discharge instructions reviewed with patient and/or family. Voiced u nderstanding. Scripts Magnesium Oxide (Magnesium Oxide) 400 Mg Tablet 400 MG PO DAILY for hypomagnesemia for 7 Days, #7 TAB 0 Refills Prov: NEVIN MANCERA MD 12/22/21 Ondansetron (Ondansetron Odt) 4 Mg Tab.rapdis 4 MG PO Q6H PRN for NAUSEA/VOMITING for 3 Days, #12 TAB 0 Refills Prov: NEVIN MANCERA MD 12/22/21 NEVIN MANCERA MD Dec 22, 2021 13:06
[2021-12-22 13:08] LABS: BASOPHILS # (AUTO) 0.2 10^3/uL (0.0-0.1); BASOPHILS % (AUTO) 2 % (0-10); EOSINOPHILS % (AUTO) 0 % (0-10); HEMATOCRIT 43 % (40-54); HEMOGLOBIN 15.4 g/dL (13.3-17.7); LYMPHOCYTES # (AUTO) 0.7 10^3/uL (1.0-4.0); LYMPHOCYTES % (AUTO) 7 % (12-44); MEAN CORPUSCULAR HEMOGLOBIN 36 pg (25-34); MEAN CORPUSCULAR HGB CONC 36 g/dL (32-36); MEAN CORPUSCULAR VOLUME 100 fL (80-99); MEAN PLATELET VOLUME 9.5 fL (9.0-12.2); MONOCYTES % (AUTO) 9 % (0-12); NEUTROPHILS # (AUTO) 9.3 10^3/uL (1.8-7.8); NEUTROPHILS % (AUTO) 83 % (42-75); PLATELET COUNT 289 10^3/uL (130-400); WHITE BLOOD COUNT 11.3 10^3/uL (4.3-11.0)
[2021-12-22 13:25] LABS: ALANINE AMINOTRANSFERASE 45 U/L (0-55); ALBUMIN 4.1 GM/DL (3.2-4.5); ALKALINE PHOSPHATASE 122 U/L (40-136); BILIRUBIN,TOTAL 1.3 MG/DL (0.1-1.0); BUN/CREATININE RATIO 4; CALCIUM 9.7 MG/DL (8.5-10.1); CARBON DIOXIDE 21 MMOL/L (21-32); CHLORIDE 97 MMOL/L (98-107); CREATININE SERUM 0.92 MG/DL (0.60-1.30); GFR ESTIMATED 93; GLUCOSE 143 MG/DL (70-105); MAGNESIUM 1.4 MG/DL (1.6-2.4); POTASSIUM 3.5 MMOL/L (3.6-5.0); SALICYLATE < 0.3 MG/DL (5.0-20.0); SODIUM 137 MMOL/L (135-145); TOTAL PROTEIN 7.2 GM/DL (6.4-8.2)
[2021-12-22 13:26] LABS: ACETAMINOPHEN < 10 UG/ML (10-30)
[2021-12-22] MEDS ORDERED: MAGNESIUM 1 GM/100 ML IVPB 100 ML IV STA (13:30)
[2021-12-22] MEDS ORDERED: NS IV 1000 ML 1,000 ML IV STA ×2 (13:30→15:03)
[2021-12-22 13:52] LABS: LYMPHOCYTES % (MANUAL) 4 %; MONOCYTES % (MANUAL) 12 %; NEUTROPHILS % (MANUAL) 84 %
[2021-12-22 15:37] LABS: BILIRUBIN,URINE NEGATIVE (NEGATIVE); CLARITY,URINE CLEAR; GLUCOSE, URINE (UA) NEGATIVE (NEGATIVE); KETONES,URINE NEGATIVE (NEGATIVE); LEUKOCYTE ESTERASE ,URINE NEGATIVE (NEGATIVE); NITRITE,URINE NEGATIVE (NEGATIVE); PH,URINE 6.5 (5-9); PROTEIN,URINE NEGATIVE (NEGATIVE)
[2021-12-22 15:41] LABS: BACTERIA,URINE MODERATE /HPF; COLOR,URINE DARK YELLOW
[2021-12-22 15:50] LABS: AMPHETAMINE SCREEN, URINE NEGATIVE (NEGATIVE); BARBITURATE SCREEN URINE NEGATIVE (NEGATIVE); BENZODIAZEPINES SCREEN URINE NEGATIVE (NEGATIVE); CANNABINOID SCREEN, URINE NEGATIVE (NEGATIVE); COCAINE SCREEN URINE NEGATIVE (NEGATIVE); METHADONE STAT NEGATIVE (NEGATIVE); OPIATE SCREEN URINE NEGATIVE (NEGATIVE); OXYCODONE STAT NEGATIVE (NEGATIVE); PROPOXYPHENE STAT NEGATIVE (NEGATIVE); TRICYCLIC ANTIDEPRESSANTS SCRE NEGATIVE (NEGATIVE)
[2021-12-22] MEDS ORDERED: MAGN400T7 PO (16:37)
[2021-12-22] MEDS ORDERED: ONDA4TAB11 PO (16:37)
[2021-12-22 16:49] VITALS: BP 153/82
== END 2021-12-22 16:49 | disposition home or self-care (01) ==
LOC: EDUNIT# 12:52 → ER FS 12:53
DX: R25.1 Tremor, unspecified (principal); R11.2 Nausea with vomiting, unspecified; R19.7 Diarrhea, unspecified; E86.0 Dehydration; E83.42 Hypomagnesemia; E80.7 Disorder of bilirubin metabolism, unspecified; R00.0 Tachycardia, unspecified; I10 Essential (primary) hypertension; F10.20 Alcohol dependence, uncomplicated; Z87.19 Personal history of other diseases of the digestive system; Z86.010 Personal history of colon polyps; Z90.49 Acquired absence of other specified parts of digestive tract; Z20.822 Contact with and (suspected) exposure to COVID-19; Z79.899 Other long term (current) drug therapy; Y90.0 Blood alcohol level of less than 20 mg/100 ml
CPT/HCPCS: 36415; 80053; 80306; 81000; 83690; 83735; 83880; 84484; 85007; 85027; 87088; 87636; 93005; 93041; 99284; G0480 ×3; 80320; 80329

== ENCOUNTER 2023-03-24 12:32 | Emergency (ER) | payer SELFPAY ==
[~2023-03-24] VITALS: Ht 182 cm; Wt 77.0 kg
[~2023-03-24 12:32] MED LIST changes: +MAGN400T7 PO; +ONDA4TAB11 PO
--- NOTE | 2023-03-24 12:36 | ED Hip Pain/Injury ---
General Chief Complaint: Hip/Pelvic Problems Stated Complaint: FALL; RT HIP PAIN History of Present Illness Date Seen by Provider: Mar 24, 2023 Time Seen by Provider: 12:36 Initial Comments 62-year-old male is here with complaints of a right hip pain after he had a fall on his front porch tripping over his dog last night. Patient has a hard time ambulating and bearing weight due to pain. Denies sensory loss, head strike, LOC, nausea and vomiting. Allergies and Home Medications Allergies Coded Allergies: No Known Drug Allergies (Unverified , 02/09/19) Patient Home Medication List Home Medication List Reviewed: Yes Folic Acid (Folic Acid) 1 Mg Tablet, 1 MG PO DAILY Prescribed by: MILDRED MIXON on 06/15/19 1135 Lisinopril (Lisinopril) 20 Mg Tablet, 20 MG PO DAILY, (Reported) Entered as Reported by: KARLEY REZA on 11/22/21 1337 Magnesium Oxide (Magnesium Oxide) 400 Mg Tablet, 400 MG PO DAILY Prescribed by: NEVIN MANCERA on 12/22/21 1637 Metoprolol Succinate (Toprol Xl) 25 Mg Tab.er.24h, 25 MG PO DAILY Prescribed by: MILDRED MIXON on 06/15/19 1135 Multivitamin/Iron/Folic Acid (Centrum Adults Tablet) 1 Each Tablet, 1 TAB PO DAILY, (Reported) Entered as Reported by: BRIANNA WILLIS on 06/13/19 1539 Ondansetron (Ondansetron Odt) 4 Mg Tab.rapdis, 4 MG PO Q6H PRN for NAUSEA/VOMITING Prescribed by: NEVIN MANCERA on 12/22/21 1637 Pantoprazole Sodium (Protonix) 40 Mg Tablet.dr, 40 MG PO DAILY Prescribed by: PARRISH SANDERS on 11/25/21 1319 Vitamin B Complex (Vitamin B Complex) 1 Each Capsule, 1 EACH PO DAILY, (Reported) Entered as Reported by: KARLEY REZA on 11/22/21 1346 Review of Systems Constitutional: no symptoms reported Musculoskeletal: joint pain Past Iqneuxo-Gtdlrh-Padbjf Hx Immunizations Up To Date Tetanus Booster (TDap): Unknown First/Initial COVID19 Vaccinat: 08/07/20 Second COVID19 Vaccination Bruno: 09/04/20 Third COVID19 Vaccination Date: 08/07/20 Seasonal Allergies Seasonal Allergies: No Past Medical History Surgery/Hospitalization HX: HTN, Alcohol use daily Surgeries: Yes (Bilat Inguinal hernia, Colonoscopy with polypectomy) Abdominal, Appendectomy, Orthopedic Respiratory: Yes (Tobaccism) COPD Currently Using CPAP: No Currently Using BIPAP: No Cardiac: Yes (Frequent PVC's, Carotid artery disease) Heart Murmur, Hypertension Neurological: No Sexually Transmitted Disease: No HIV/AIDS: No Genitourinary: Yes Bladder Infection Gastrointestinal: Yes (Hx gastritis, duodenitis, H. pylori) Musculoskeletal: Yes (Spondylolysis lumbar region hx, Hx mallet finger, Fx 4th MC bone R hand) Fractures Endocrine: No HEENT: No Cancer: No (Tubular adenoma colon (polypectomy) 2018) Psychosocial: No Integumentary: No Blood Disorders: No Family Medical History Cataracts 19 MOTHER Gastroenteritis 19 MOTHER Glaucoma 19 MOTHER Hypercholesterolemia 19 FATHER Neoplasm 19 FATHER Parkinson's disease 19 FATHER Respiratory disorder 19 FATHER COPD Physical Exam Vital Signs Vital Signs - First Documented 03/24/23 12:35 Temp 37.1 Pulse 103 Resp 16 B/P (MAP) 174/105 (128) Pulse Ox 100 O2 Delivery Room Air Capillary Refill : Height, Weight, BMI Height: '" Weight: lbs. oz. kg; 23.49 BMI Method: General Appearance: No Apparent Distress, WD/WN HEENT: PERRL/EOMI Neck: Full Range of Motion, Normal Inspection, Non Tender, Supple Cardiovascular: Regular Rate, Rhythm Respiratory: Lungs Clear Back: Normal Inspection, No Vertebral Tenderness Extremity: Normal Inspection (Right hip is tender the upper part of the lateral thigh to palpation, ROM restricted due to pain, N/V bundle appears to be intact, there is no shortening of the extremity. Knee joint appears to be normal and unrestricted movement. No bruising seen.) Neurologic/Psychiatric: Alert, No Motor/Sensory Deficits, Normal Mood/Affect, Other (Able to stand and walk however it is painful) Skin: Normal Color Progress/Results/Core Measures Results/Orders My Orders Orders - DIMAS AUSTIN MD Femur 2 View Right (03/24/23 12:44) Pelvis With Right Hip 2-3 View (03/24/23 12:44) Ice: Apply To Affected Area (03/24/23 12:44) Ketorolac Injection (Ketorolac Injection (03/24/23 12:45) Medications Given in ED Current Medications Medications Dose Ordered Sig/Bhumi Route Start Time Stop Time Status Last Admin Dose Admin Ketorolac Tromethamine 15 mg ONCE ONCE IVP 03/24/23 12:45 03/24/23 12:46 DC 03/24/23 13:10 15 MG Vital Signs/I&O 03/24/23 12:35 Temp 37.1 Pulse 103 Resp 16 B/P (MAP) 174/105 (128) Pulse Ox 100 O2 Delivery Room Air Progress Progress Note : Progress Note 1. RIGHT NONDISPLACED FRACTURE OF THE FEMUR: - XR RIGHT HIP/ PELVIS/ FEMUR: Nondisplaced fracture involving the greater trochanter of the proximal right femur. - Toradol iv STAT - Advised ice application - Low-weight bearing with walker. Walker dispensed from the ER - Advised Ibuprofen 600mg every 6 hours as needed for pain. Also, if more pain control is needed, add Tylenol 650mg every 4 hours, as needed. - Advised to follow up with Ortho in the next 3 days. ( Dr. Dean's office. Call to make appointment.) Pt will need physical therapy as well. -The patient was seen in the ED, and treated appropriately to presentation at a specific point in time. Patient is informed that there is a possibility that disease and illness can evolve and change in acuity rapidly or slowly after patient is discharged from the ER. Precautionary advice given to the patient for immediate return to ER if symptoms worsen or do not resolve, and to seek emergency care sooner rather than later. Pt also advised on the importance of PCP follow up and compliance with management and follow up plan with PCP and/or specialist, as this is part of the management plan. Pt verbally expressed understanding. Diagnostic Imaging Diagonstic Imaging: Xray Plain Films/CT/US/NM/MRI: pelvis, hip, femur Comments [facility]. [place], [place] NAME: DIANNE MICHELLE [facility] REC#: [id number] PT STATUS: REG ER : 1960 PHYSICIAN: DIMAS AUSTIN MD ADMIT DATE: 03/24/23/ER FS Signed Date of Exam:03/24/23 PELVIS WITH RIGHT HIP 2-3 VIEW CLINICAL HISTORY: Fall. Pelvic and right hip pain. COMPARISON: None. TECHNIQUE: 4 views of the pelvis and right hip. FINDINGS: Nondisplaced fracture seen involving the greater trochanter of the proximal right femur. No other fractures are seen in the pelvis and right hip. There is normal alignment of the right hip joint. No focal osseous lesions. IMPRESSION: 1. Nondisplaced fracture involving the greater trochanter of the proximal right femur. Dictated by: Dictated on workstation # [id number] Dict: 03/24/23 1323 Trans: 03/24/23 1341 [facility] [id number] Interpreted by: SHRAVAN LYMAN DO Electronically signed by: SHRAVAN LYMAN DO 03/24/23 1341 Departure Impression Primary Impression: Fracture of greater trochanter of right femur Disposition: HOME, SELF-CARE Condition: Stable Departure-Patient Inst. Referrals: PEE GIBBONS MD (PCP/Family) Primary Care Physician ROSY DEAN MD Patient Instructions: Femur Fracture ED, Femur Fracture (DC), Going Up and Down Curbs or Stairs With a Walker or Crutches Add. Discharge Instructions: - Advised ice application - Low-weight bearing with walker. Walker dispensed from the ER - Advised Ibuprofen 600mg every 6 hours as needed for pain. Also, if more pain control is needed, add Tylenol 650mg every 4 hours, as needed. - Advised to follow up with Ortho in the next 3 days. ( Dr. Dean's office. Call to make appointment.) Pt will need physical therapy as well. All discharge instructions reviewed with patient and/or family. Voiced understanding. DIMAS AUSTIN MD Mar 24, 2023 12:36
[2023-03-24] MEDS ORDERED: KETOROLAC INJ 15 MG/ML VIAL IVP ONE (12:45)
--- NOTE | 2023-03-24 13:29 | Diagnostic Imaging Report ---
CLINICAL HISTORY: Fall. Pelvic and right hip pain. COMPARISON: None. TECHNIQUE: 4 views of the pelvis and right hip. FINDINGS: Nondisplaced fracture seen involving the greater trochanter of the proximal right femur. No other fractures are seen in the pelvis and right hip. There is normal alignment of the right hip joint. No focal osseous lesions. IMPRESSION: 1. Nondisplaced fracture involving the greater trochanter of the proximal right femur. Dictated by: Dictated on workstation # [id number]
--- NOTE | 2023-03-24 13:32 | Diagnostic Imaging Report ---
CLINICAL HISTORY: Fall. Right leg pain. COMPARISON: Pelvic radiograph performed the same day. TECHNIQUE: 4 views of the right femur. FINDINGS: Nondisplaced fracture seen involving the greater trochanter of the proximal right femur. No other fractures are seen in the right femur. Alignment is anatomic. No focal osseous lesions. IMPRESSION: 1. Acute nondisplaced fracture involving the greater trochanter of the proximal right femur. Dictated by: Dictated on workstation # [id number]
[2023-03-24 14:31] VITALS: BP 135/91
== END 2023-03-24 14:31 | disposition home or self-care (01) ==
LOC: EDUNIT# 12:32 → ER FS 12:34
DX: S72.111A Displaced fracture of greater trochanter of right femur, initial encounter for closed fracture (principal); W01.0XXA Fall on same level from slipping, tripping and stumbling without subsequent striking against object, initial encounter
CPT/HCPCS: 73502; 73552; 96374